=== PATIENT | male | born 1940 | race Caucasian/White ===

== ENCOUNTER → 2018-10-05 | Outpatient (CLI) | payer OTHER ==
[~2018-10-05] MED LIST: AMLO5 PO; ASPI325 PO; ASPI81CH PO; ATOR40TA PO; Aldactone25 MG PO; CLOP75 PO; ENAL10 PO; ENAL20; HYDCHL25 PO; HYDCHL50; LISI5 PO; MAGOXI400 PO; METO50 PO; METO50ER; METO50ER PO; METPRE4DP; MIRT15; MIRT15 PO; OMEP20ER PO; OXYM.05NI; PANT20 PO; POTCHL20ER PO; ROPI1 PO; SERT50; THIA100 PO; TRAZ100
== END | disposition home or self-care (01) ==
LOC: PLD 07:58 → LAB SHORT 07:58
DX: D22.4 Melanocytic nevi of scalp and neck (principal); L81.4 Other melanin hyperpigmentation
CPT/HCPCS: 88305

== ENCOUNTER → 2019-04-12 | Outpatient (CLI) | payer OTHER | END | disposition home or self-care (01) | LOC: PLD 08:20 → LAB SHORT 08:20 | DX: J34.0 Abscess, furuncle and carbuncle of nose (principal) | CPT/HCPCS: 88305 ==

== ENCOUNTER → 2020-04-18 | Outpatient (CLI) | payer OTHER | END | disposition home or self-care (01) | LOC: LAB 08:42 → LAB SHORT 08:42 | DX: D04.4 Carcinoma in situ of skin of scalp and neck (principal) | CPT/HCPCS: 88305 ==

== ENCOUNTER 2021-10-09 14:01 | Day surgery (SDC) | payer OTHER | END 2021-10-09 17:30 | disposition home or self-care (01) | LOC: ORSCSDS 14:01 | PROVIDERS: Internal Medicine Gastroenterology | PROC: 0DB58ZX Excision of Esophagus, Via Natural or Artificial Opening Endoscopic, Diagnostic (ICD-10-PCS; principal; 2021-10-09 15:15) | PROC: 0DBH8ZX Excision of Cecum, Via Natural or Artificial Opening Endoscopic, Diagnostic (ICD-10-PCS; principal; 2021-10-09 15:15) | PROC: 0DBL8ZX Excision of Transverse Colon, Via Natural or Artificial Opening Endoscopic, Diagnostic (ICD-10-PCS; principal; 2021-10-09 15:15) | DX: K22.70 Barrett's esophagus without dysplasia (principal); R19.5 Other fecal abnormalities; Z86.010 Personal history of colon polyps; D12.0 Benign neoplasm of cecum; D12.3 Benign neoplasm of transverse colon; K44.9 Diaphragmatic hernia without obstruction or gangrene; K64.8 Other hemorrhoids; Z87.891 Personal history of nicotine dependence; K57.30 Diverticulosis of large intestine without perforation or abscess without bleeding; E66.9 Obesity, unspecified; Z68.37 Body mass index [BMI] 37.0-37.9, adult; Z79.899 Other long term (current) drug therapy; Z79.82 Long term (current) use of aspirin; I25.2 Old myocardial infarction; G47.33 Obstructive sleep apnea (adult) (pediatric) | CPT/HCPCS: 88305; J0330; J0461; J2370; J2405; J2704; J7120 ==

== ENCOUNTER 2023-01-22 19:00 | Inpatient (IN) | payer OTHER ==
[~2023-01-22] VITALS: Ht 180.3 cm; Wt 128.5 kg
[2023-01-22 19:53] LABS: BASOPHILS ABSOLUTE AUTO 0.07 K/mm3 (0.00-0.23); BASOPHILS PERCENT AUTO 0 % (0-2); EOSINOPHILS ABSOLUTE AUTO 0.03 K/mm3 (0.00-0.68); EOSINOPHILS PERCENT AUTO 0 % (0-6); Hemoglobin 15.3 g/dL (13.5-17.5); IMMATURE GRAN ABSOLUTE AUTO 0.11 K/mm3 (0.00-0.10); IMMATURE GRAN PERCENT AUTO 1 % (0-1); LYMPHOCYTES ABSOLUTE AUTO 1.39 K/mm3 (0.84-5.20); LYMPHOCYTES PERCENT AUTO 8 % (21-46); MONOCYTES ABSOLUTE AUTO 1.05 K/mm3 (0.16-1.47); MONOCYTES PERCENT AUTO 6 % (4-13); Mean Corpuscular HGB 30.6 pg (26.0-34.0); Mean Corpuscular Volume 90 fL (80-100); Mean Platelet Volume 9.6 fL (9.1-12.4); NEUTROPHILS ABSOLUTE AUTO 14.09 K/mm3 (1.96-9.15); NEUTROPHILS PERCENT AUTO 84 % (41-73); Platelet Count 347 K/mm3 (150-400); RDW Coefficient Variation 13.9 % (11.7-14.2); RDW Standard Deviation 45.6 fL (35.1-46.3); White Blood Cell Count 16.74 K/mm3 (4.00-11.30)
[2023-01-22 19:54] LABS: Alanine Aminotransfer (ALT/SGP 15 U/L (12-78); Albumin, Blood 3.5 g/dL (3.4-5.0); Albumin/Globulin Ratio 0.9 (0.8-1.8); Alk Phos 64 U/L (50-136); Anion Gap 11 mmol/L (6-16); Aspartate Aminotrans (AST/SGOT 21 U/L (12-37); Bilirubin, Total 1.3 mg/dL (0.1-1.0); Blood Urea Nitrogen 20 mg/dL (8-24); Bun/Creatinine Ratio 16.5 (12.0-20.0); CO2, Blood 27 mmol/L (21-32); Calcium, Blood 6.6 mg/dL (8.5-10.1); Chloride, Blood 103 mmol/L (98-108); Creatinine, Blood 1.21 mg/dL (0.60-1.20); Globulin, Blood 4.1 g/dL (2.2-4.0); Glomerular Filtration Rate 60 (60-); Glucose, Blood 134 mg/dL (70-99); Potassium, Blood 2.8 mmol/L (3.5-5.5); Sodium, Blood 141 mmol/L (136-145); Total Protein, Blood 7.6 g/dL (6.4-8.2)
[2023-01-22 21:07] LABS: Ethanol (Alcohol), Blood, Med <3 mg/dL
[2023-01-22 21:16] LABS: International Normalized Ratio 1.13; Prothrombin Time Results 11.8 Sec (9.7-11.5)
[2023-01-22 21:18] LABS: Phosphorus, Blood 2.3 mg/dL (2.5-4.9)
[2023-01-22 21:19] LABS: Magnesium, Blood 0.5 mg/dL (1.6-2.4)
[2023-01-22 22:02] LABS: Influenza A, PCR NEGATIVE (NEGATIVE); Influenza B, PCR NEGATIVE (NEGATIVE); Resp Syncytial Virus, PCR NEGATIVE (NEGATIVE); SARS-Cov-2 (COVID-19) PCR, MMC NEGATIVE (NEGATIVE)
[2023-01-22 23:07] LABS: Source, Urine Clean Catch
[2023-01-22 23:39] LABS: Bilirubin, Urine Neg (Neg); Blood, Urine 2+ (Neg); Glucose Qualitative, Urine Neg (Neg); Ketones, Urine 3+ (Neg); Leukocyte Esterase, Urine Neg (Neg); Nitrite, Urine Neg (Neg); Protein, Urine 3+ (Neg); Urobilinogen, Urine NORM (Normal)
[2023-01-22 23:45] LABS: Appearance, Urine Hazy (Clear); Color, Urine Yellow (P-Yellow)
[2023-01-22 23:46] LABS: Bacteria Few /hpf; Red Blood Cells, Urine 0-2 /hpf (0-2); Squamous Epithelial Cells Few /hpf (Few); White Blood Cells, Urine 0-2 /hpf (0-5)
[2023-01-22 23:47] LABS: Base Excess Venous 1.8 mmol/L; Bicarbonate Venous 26.5 mmol/L (24.0-30.0); PCO2 Venous 32.9 mmHg (38-42); pH Blood Venous 7.49 (7.34-7.37)
[2023-01-23] VITALS (10 sets, daily range): BP systolic 143–179; BP diastolic 89–112
[2023-01-23 04:39] LABS: BASOPHILS ABSOLUTE AUTO 0.04 K/mm3 (0.00-0.23); BASOPHILS PERCENT AUTO 0 % (0-2); EOSINOPHILS ABSOLUTE AUTO 0.06 K/mm3 (0.00-0.68); EOSINOPHILS PERCENT AUTO 1 % (0-6); Hematocrit 42.2 % (37.0-53.0); Hemoglobin 14.3 g/dL (13.5-17.5); IMMATURE GRAN ABSOLUTE AUTO 0.09 K/mm3 (0.00-0.10); IMMATURE GRAN PERCENT AUTO 1 % (0-1); LYMPHOCYTES ABSOLUTE AUTO 1.54 K/mm3 (0.84-5.20); LYMPHOCYTES PERCENT AUTO 13 % (21-46); MONOCYTES ABSOLUTE AUTO 0.88 K/mm3 (0.16-1.47); MONOCYTES PERCENT AUTO 7 % (4-13); Mean Corpuscular HGB 30.6 pg (26.0-34.0); Mean Corpuscular HGB Conc 33.9 g/dL (31.5-36.5); Mean Corpuscular Volume 90 fL (80-100); Mean Platelet Volume 9.2 fL (9.1-12.4); NEUTROPHILS ABSOLUTE AUTO 9.32 K/mm3 (1.96-9.15); NEUTROPHILS PERCENT AUTO 78 % (41-73); Platelet Count 286 K/mm3 (150-400); RDW Standard Deviation 46.3 fL (35.1-46.3); Red Blood Cell Count 4.68 M/mm3 (4.30-5.90); White Blood Cell Count 11.93 K/mm3 (4.00-11.30)
[2023-01-23 05:35] LABS: Magnesium, Blood 1.8 mg/dL (1.6-2.4)
[2023-01-23 05:36] LABS: Albumin, Blood 3.1 g/dL (3.4-5.0); Albumin/Globulin Ratio 0.8 (0.8-1.8); Bilirubin, Total 1.4 mg/dL (0.1-1.0); Creatinine, Blood 1.06 mg/dL (0.60-1.20); Globulin, Blood 3.9 g/dL (2.2-4.0); Potassium, Blood 3.1 mmol/L (3.5-5.5)
--- NOTE | 2023-01-23 06:19 | NUR ---
SHIFT SUMMARY PATIENT ARRIVED TO PCU 10 VIA STRETCHER AT 0005, SLIDE TRANSFER COMPLETED. PATIENT IS ALERT AND ORIENTED X3, THOUGHT THE YEAR WAS 1998. EQUAL STRENGTH AND PUPIL REACTION, NO SEIZURE ACTIVITY NOTED. PATIENT'S TONGUE IS SWOLLEN AND BLEEDING DUE TO BEING BITTEN, AVULSION TO PARTIAL LEFT SIDE OF TONGUE, PICTURES IN THE PATIENT'S CHART. FREQUENT SUCTIONING PERFORMED TO MANAGE SECRETIONS PATIENT IS DROWSY/SLEEPING AND NOT MANAGING THEM ON HIS OWN. PATIENT IS ON ROOM AIR, BUT NOTED TO HAVE SLEEP APNEA. BLOOD PRESSURE 140'S-150'S, SINUS RHYTHM IN THE 80'S ON TELE. WILL CONTINUE TO MONITOR. CALL LIGHT WITHIN REACH.
--- NOTE | 2023-01-23 09:16 | NUR ---
WILL HOLD OFF ON PO MEDICATIONS UNTIL SPEECH THERAPY EVAL, PT IS NOT FULLY MANAGING HIS SECRETIONS HE IS NOTED TO BE DROOLING RATHER THAN SWALLOWING, HE IS NOT AWARE OF THIS. FAMILY AT BEDSIDE MENTIONS NUMEROUS TIMES THAT PT IS THIRSTY, THE FAMILY IS EDUCATED ABOUT NPO STATUS AND IS MADE AWARE OF PT DROOLING OPPOSED TO SWALLOWING, FAMILY AGAIN ASKS "YOU'RE SUPPOSED TO SWALLOW?" THEY ARE EDUCATED THOROUGHLY BUT EDUCATION DOES NOT APPEAR SUCCESSFUL. SPEECH THERAPY WILL BE COMING IN TO EVALUATE HIM SHORTLY.
--- NOTE | 2023-01-23 12:13 | NUR ---
PT CONTINUES TO BE STRICT NPO, HE DECLINED ORAL CARE FOR PCT THIS RN OFFERED AND PT AGREED LONG HE WAS ALLOWED TO DO IT FOR HIMSELF. HE WAS ABLE TO CLEAN THE TONGUE WOUND WELL, AND SPIT IN CUP, SUCTION SWABS USED.
[2023-01-23] MEDS ORDERED: METO25ER PO (12:49)
[2023-01-23] MEDS ORDERED: METO100ER PO (12:49)
[2023-01-23] MEDS ORDERED: DOXE25 PO (12:49)
[2023-01-23] MEDS ORDERED: PANT40 PO (12:50)
[2023-01-23] MEDS ORDERED: SPIR25 PO (12:50)
[2023-01-23] MEDS ORDERED: MIRT15 PO (12:50)
[2023-01-23] MEDS ORDERED: Lopressor 25 mg25 MG PO (12:53)
--- NOTE | 2023-01-23 15:07 | NUR ---
pt to MRI
--- NOTE | 2023-01-23 18:23 | NUR ---
PT A/O X2, ORIENTED TO PLACE AND SELF ONLY T/O THIS ENTIRE SHIFT. HE IS IMPULSIVE HE HAS REMOVED TWO IVs TODAY HE WAS CONFUSED, HE HAS BEEN IMPLUSIVE AND HAS ATTEMPTED TO EXIT THE BED THIS AM. HE DOES NOT USE CALL LIGHT APPROPRIATE. HE IS ABLE TO USE THE URINAL WITH ASSISTANCE. ORAL CARE HAS BEEN PERFORMED Q4 HOURS. HE REMAINS NPO, HE IS A TRICT NPO HE IS NOT ABLE TO SWALLOW OWN SECRETIONS. HE HAS BEEN FOR MRI TODAY WHICH SHOWED A SMALL TEMPORAL LOBE INFARCT. A CAROTID STUDY WAS PERFORMED THIS EVENING. HE HAS AN ECHO ORDERED WHICH HAS NOT BEEN PERFORMED. HE HAS HTN NOTED ON THE MONITOR, AWARE.
[2023-01-24 04:19] VITALS: BP 130/95
[2023-01-24 05:08] LABS: BASOPHILS ABSOLUTE AUTO 0.08 K/mm3 (0.00-0.23); BASOPHILS PERCENT AUTO 1 % (0-2); EOSINOPHILS ABSOLUTE AUTO 0.11 K/mm3 (0.00-0.68); EOSINOPHILS PERCENT AUTO 1 % (0-6); Hematocrit 44.4 % (37.0-53.0); Hemoglobin 14.7 g/dL (13.5-17.5); IMMATURE GRAN ABSOLUTE AUTO 0.09 K/mm3 (0.00-0.10); IMMATURE GRAN PERCENT AUTO 1 % (0-1); LYMPHOCYTES ABSOLUTE AUTO 1.58 K/mm3 (0.84-5.20); LYMPHOCYTES PERCENT AUTO 11 % (21-46); MONOCYTES ABSOLUTE AUTO 1.12 K/mm3 (0.16-1.47); MONOCYTES PERCENT AUTO 8 % (4-13); Mean Corpuscular HGB 30.7 pg (26.0-34.0); Mean Corpuscular HGB Conc 33.1 g/dL (31.5-36.5); Mean Corpuscular Volume 93 fL (80-100); Mean Platelet Volume 9.5 fL (9.1-12.4); NEUTROPHILS ABSOLUTE AUTO 11.35 K/mm3 (1.96-9.15); NEUTROPHILS PERCENT AUTO 79 % (41-73); Platelet Count 334 K/mm3 (150-400); RDW Coefficient Variation 14.1 % (11.7-14.2); RDW Standard Deviation 48.3 fL (35.1-46.3); Red Blood Cell Count 4.79 M/mm3 (4.30-5.90); White Blood Cell Count 14.33 K/mm3 (4.00-11.30)
[2023-01-24 05:31] LABS: Anion Gap 11 mmol/L (6-16); Blood Urea Nitrogen 16 mg/dL (8-24); Bun/Creatinine Ratio 14.5 (12.0-20.0); CHOL/HDL RATIO 2.7; CO2, Blood 25 mmol/L (21-32); Calcium, Blood 7.1 mg/dL (8.5-10.1); Chloride, Blood 104 mmol/L (98-108); Cholesterol 118 mg/dL (50-200); Glomerular Filtration Rate 67 (60-); Glucose, Blood 111 mg/dL (70-99); HDL Cholesterol 43 mg/dL (>39); LDL/HDL RATIO 1.2; Low Density Lipoprotein Chol 53 mg/dL (0-110); Magnesium, Blood 1.5 mg/dL (1.6-2.4); Potassium, Blood 3.3 mmol/L (3.5-5.5); Sodium, Blood 140 mmol/L (136-145); Triglycerides 110 mg/dL (30-160); Very Low Density Lipoprot Chol 22 mg/dL (6-32)
--- NOTE | 2023-01-24 06:57 | NUR ---
SHIFT SUMMARY PATIENT ALERT AND ORIENTED X2. DOES NOT REALISE THAT HE IS IN THE HOSPITAL. PATIENT IS IMPULSIVE TRYING TO GET UP AND PULLING AT LINES AND TELEMETRY AND IS DIFFICULT TO REDIRECT. PATIENT HAS BECOME FRUSTRATED MANY TIMES WANTING TO GO HOME AND HAS OCCASIONALLY RAISED HIS FIST IN IN THREATENING MANOR AND THREATENED TO HIS THIS NURSE ON A COUPLE OCCASIONS. MEDICATED PER EMAR FOR HYPERTENTION, SINUS RHYTHM ON TELE. ON ROOM AIR WITH SPO2 >90%. PATIENT STILL HAVING DIFFICULTY MANAGING HIS SECRETIONS AND DROOLING, BUT STARTING TO SWALLOW THEM ON OCCASION. WILL CONTINUE TO MONITOR. CALL LIGHT WITHIN REACH.
[2023-01-24 07:51] VITALS: BP 153/96
--- NOTE | 2023-01-24 09:54 | NUR ---
THIS RN IN ROOM TO PERFORM ORAL CARE, PT GRABS THE SUCTION SWAB FROM THIS RN BREAKS IT IN HALF, SLINGS ORAL CARE SOLUTION IN THIS RN'S EYES, THEN ATTEMPTS TO HIT THIS RN IN THE FACE. ATTEMPTS TO PERFORM ORAL ARE MILDLY SUCCESSFUL PT IS ATTMEPTING TO CLEAN HIS OWN MOUTH BUT HE IS NOT CLEANING THE MOUTH WOUND, PT IS TOO VIOLENT TO ON NUMROUS OCCASIONS TO CONTINUE THIS ATTEMPT AT ORAL CARE
[2023-01-24 17:13] VITALS: BP 160/98
--- NOTE | 2023-01-24 18:03 | NUR ---
PT HAS CONTINUED TO BE AGITATED T/O THE DAY, HE REMAINS COMBATIVE AND STRIKES AT STAFF WHEN TOUCHED OR ORAL CARE IS PERFORMED. AVASURE CAMERA REMAINS IN USE IN ROOM. VSS. HE IS MORE CONFUSED TODAY THAN YESTERDAY. HE IS MAINTAINING HIS AIRWAY WELL, WITH CONGESTED SOUNDING COUGH, HE PUNCHES STAFF WHILE ATTEMPTING TO SUCTION HIS CONGESTED COUGH. HE REMAINS RESTLESS AND REMOVING MONITORING EQUIPMENT, HE HAS ATTEMPTED TO REMOVE POWERGLIDE TODAY HE WAS NOT SUCCESSFUL IN REMOVING POWER GLIDE THE LINES DRAWS AND FLUSHES. HE IS ABLE TO MANAGE HIS SECRETIONS TODAY AND IS ABLE TO SWALLOW, HE WAS RE-EVALUATED BY SPEECH THERAPY TODAY HE REMAINS NPO. SUCTION SWABS USED WHEN HE IS NOT PUNCHING STAFF FOR PEFORMING ORAL CARE
[2023-01-24 19:22] VITALS: BP 162/100
[2023-01-25] VITALS (11 sets, daily range): BP systolic 153–186; BP diastolic 61–105
[2023-01-25 03:57] LABS: BASOPHILS ABSOLUTE AUTO 0.04 K/mm3 (0.00-0.23); BASOPHILS PERCENT AUTO 0 % (0-2); EOSINOPHILS ABSOLUTE AUTO 0.19 K/mm3 (0.00-0.68); EOSINOPHILS PERCENT AUTO 2 % (0-6); Hematocrit 39.4 % (37.0-53.0); Hemoglobin 12.8 g/dL (13.5-17.5); IMMATURE GRAN ABSOLUTE AUTO 0.05 K/mm3 (0.00-0.10); IMMATURE GRAN PERCENT AUTO 1 % (0-1); LYMPHOCYTES ABSOLUTE AUTO 1.14 K/mm3 (0.84-5.20); LYMPHOCYTES PERCENT AUTO 13 % (21-46); MONOCYTES PERCENT AUTO 11 % (4-13); Mean Corpuscular HGB 30.5 pg (26.0-34.0); Mean Corpuscular HGB Conc 32.5 g/dL (31.5-36.5); Mean Corpuscular Volume 94 fL (80-100); Mean Platelet Volume 9.4 fL (9.1-12.4); NEUTROPHILS ABSOLUTE AUTO 6.66 K/mm3 (1.96-9.15); NEUTROPHILS PERCENT AUTO 73 % (41-73); Platelet Count 282 K/mm3 (150-400); RDW Standard Deviation 47.9 fL (35.1-46.3); White Blood Cell Count 9.08 K/mm3 (4.00-11.30)
[2023-01-25 04:12] LABS: Albumin, Blood 2.9 g/dL (3.4-5.0); Anion Gap 9 mmol/L (6-16); Blood Urea Nitrogen 13 mg/dL (8-24); Bun/Creatinine Ratio 12.1 (12.0-20.0); CO2, Blood 28 mmol/L (21-32); Calcium, Blood 6.5 mg/dL (8.5-10.1); Chloride, Blood 105 mmol/L (98-108); Creatinine, Blood 1.07 mg/dL (0.60-1.20); Glomerular Filtration Rate 70 (60-); Glucose, Blood 103 mg/dL (70-99); Magnesium, Blood 1.4 mg/dL (1.6-2.4); Phosphorus, Blood 1.8 mg/dL (2.5-4.9); Potassium, Blood 3.3 mmol/L (3.5-5.5); Sodium, Blood 142 mmol/L (136-145)
--- NOTE | 2023-01-25 05:05 | NUR ---
END OF SHIFT NOTE: PT ALERT, ORIENTED X1-2. AGITATED AT TIMES, IV BENADRYL SOMEWHAT EFFECTIVE AT REDUCING THE AGITATION. PT HAS BEEN HALLUCINATING AT TIMES, GRASPING TOWARDS THINGS IN THE AIR THAT ARE NOT PRESENT AND STATING "COME HERE YOU" AND TRYING TO REMOVE "STRINGS" FROM HIS GLASSES THAT ARE NOT PRESENT. PT WAS COMBATIVE AT TIMES WHEN AWOKEN OR STARTLED, OR WHEN HE DID NOT WANT CARE PERFORMED (EX. ORAL CARE). [employer] CAMERA REMAINS IN PLACE FOR PT SAFETY. CONGESTED COUGH AND HEAVY SNORE REMAIN, BUT PT APPEARS TO BE HANDLING HIS OWN SECRETIONS. NO DROOLING OBSERVED. SUCTION PRN WHEN PT WILL ALLOW. Q2 ORAL CARE ATTEMPTED, ONLY SUCCESSFUL AT TIMES. VSS, BP REMAINS ELEVATED. SPO2 >90% ON RA. MULTIPLE INCONTINENT VOIDS, ATTENDS CHANGED TO KEEP C/D/I. REPOSITIONED AND BOOSTED IN BED WHEN PT AGREEABLE AND COOPERATIVE. NO OTHER EVENTS. CALL LIGHT WITHIN REACH, BED IN LOWEST POSITION. BED ALARM ON. WILL REPORT TO ONCOMING RN.
--- NOTE | 2023-01-25 18:19 | NUR ---
Shift Summary Pt alert, oriented to self, hallucinating grabbing at air and talking while eyes closed, this am. Pt up to chair and slept for several hours, this afternoon, pt more alert and oriented x3. Up with 2 person assist. Pt denies pain, chest pain/pressure, sob, nausea, and dizziness. Pt tele sinus 90's, bp elevated. Spo2 >90% on ra, apnea noted while sleeping. Pt is not able to manage secretions, noted drooling, suction used several times during shift, started peridex bid. Abd distended, normal for patient, nontender with +bt. Other vss. No other acute changes noted. Will continue to monitor.
--- NOTE | 2023-01-25 20:53 | NUR ---
ASSUMPTION OF CARE AFTER RECEIVING REPORT FROM TRICIA MARTINEZ, THIS RN ASSUMED CARE AT APPROX 1915. PATIENT SLEEPING DURING INITIAL ENCOUNTER, EASILY AROUSABLE TO VERBAL STIMULI. IS ALERT AND ORIENTED X2-3. ABLE TO REPORT NAME, DATE OF , AND THAT HE IS IN THE HOSPITAL. SPEECH IS SOFT, GARBLED. ABLE TO COMMUNICATE NEEDS EFFECTIVELY. IS FORGETFUL, BED ALARM AND BEDSIDE AVASURE IN PLACE. IS COOPERATIVE WITH CARE. TELEMETRY SHOWING SINUS 80's. BP ELEVATED, SBP 160's-170's. DENIES CHEST PAIN OR PRESSURE. THIS RN ADMINISTERED IV HYDRALAZINE PER EMAR. WILL CONTINUE TO MONITOR. ON ROOM AIR, SATS >90%. WEAK COUGH NOTED WITH MODERATE SECRETIONS. REQUIRING FREQUENT SUCTION PRN AND TOLERATED. CONTINENT, USES URINAL WITH ASSIST. CALL LIGHT IN REACH.
[2023-01-26 03:48] VITALS: BP 165/85
[2023-01-26 04:09] VITALS: BP 137/88
--- NOTE | 2023-01-26 05:12 | NUR ---
SHIFT SUMMARY NO ACUTE CHANGES SINCE PREVIOUS ASSUMPTION OF CARE NOTE. PATIENT SLEPT THROUGHOUT SHIFT, EASILY AROUSABLE TO VERBAL STIMULI. TELEMETRY CONTINUING TO SHOW SINUS 80's. BP ELEVATED AT TIMES THROUGHOUT NIGHT, SBP 150's-160's. MOST CURRENT SBP 130's. REMAINS ON ROOM AIR, SATS >92%. ORAL SUCTIONING FOR MODERATE SECRETIONS PERFORMED NEEDED/TOLERATED. PATIENT DECLINED MULTIPLE TIMES THROUGHOUT NIGHT. 2P ASSIST FOR MOBILITY. UP TO USE BSC FOR X1 BM. USES URINAL IN BED WITH ASSIST, VOIDING. IVF INFUSING PER EMAR. BED ALARM AND AVASURE IN PLACE. CALL LIGHT IN REACH. WILL REPORT TO ONCOMING RN.
[2023-01-26 07:13] VITALS: BP 169/102
--- NOTE | 2023-01-26 07:36 | NUR ---
AM NOTE PT ALERT, ORIENTED X2; CALM AND COOPERATIVE WTIH CARE. FORGETFUL AT TIMES. BED ALARM ON. 2 PERSON ASSIST UP TO CHAIR. PT DENIES PAIN, CHEST PAIN/PRESSURE, SOB, NAUSEA, DIZZINESS AND NUMB/TINGLING. SPO2 >90% ON RA, MODERATE AMOUNT OF SPUTUM NOTED, PT SELF SUCTIONED. PERIDEX ORAL CARE COMPLETED. NO DROOLING NOTED THIS AM. TELE SINUS, ELEVATED BP, MEDICATED PER EMAR. ABD DISTENDER, NORMAL FOR PT, NONTENDER, +BT T/O. VSS. NO OTHER ACUTE CHANGES NOTED. WILL CONTINUE TO MONITOR. PLANS TO FOLLOW UP WITH PT/OT/ST TODAY.
[2023-01-26 10:01] LABS: Bun/Creatinine Ratio 11.1 (12.0-20.0); Creatinine, Blood 0.9 mg/dL (0.60-1.20); Potassium, Blood 3.2 mmol/L (3.5-5.5)
[2023-01-26 15:17] VITALS: BP 148/94
--- NOTE | 2023-01-26 17:39 | NUR ---
Shift Summary Dr Winter consulted on tongue laceration. Perideix this am, 2 salt rinses, and oral care q2. No acute changes noted. Vss. will continue to monitor.
[2023-01-26 20:54] VITALS: BP 180/79
[2023-01-26 21:59] VITALS: BP 168/91
[2023-01-27 03:29] VITALS: BP 157/99
[2023-01-27 04:23] LABS: BASOPHILS ABSOLUTE AUTO 0.05 K/mm3 (0.00-0.23); BASOPHILS PERCENT AUTO 1 % (0-2); EOSINOPHILS PERCENT AUTO 2 % (0-6); Hematocrit 40.2 % (37.0-53.0); Hemoglobin 13.6 g/dL (13.5-17.5); IMMATURE GRAN ABSOLUTE AUTO 0.04 K/mm3 (0.00-0.10); IMMATURE GRAN PERCENT AUTO 0 % (0-1); LYMPHOCYTES ABSOLUTE AUTO 1.05 K/mm3 (0.84-5.20); LYMPHOCYTES PERCENT AUTO 10 % (21-46); MONOCYTES PERCENT AUTO 10 % (4-13); Mean Corpuscular HGB 30.8 pg (26.0-34.0); Mean Corpuscular HGB Conc 33.8 g/dL (31.5-36.5); Mean Corpuscular Volume 91 fL (80-100); Mean Platelet Volume 9.6 fL (9.1-12.4); NEUTROPHILS ABSOLUTE AUTO 8.13 K/mm3 (1.96-9.15); NEUTROPHILS PERCENT AUTO 78 % (41-73); Platelet Count 326 K/mm3 (150-400); RDW Coefficient Variation 13.9 % (11.7-14.2); RDW Standard Deviation 46.6 fL (35.1-46.3); Red Blood Cell Count 4.42 M/mm3 (4.30-5.90); White Blood Cell Count 10.47 K/mm3 (4.00-11.30)
[2023-01-27 05:00] LABS: Bun/Creatinine Ratio 13.1 (12.0-20.0); Creatinine, Blood 0.91 mg/dL (0.60-1.20); Magnesium, Blood 1.6 mg/dL (1.6-2.4); Potassium, Blood 3.4 mmol/L (3.5-5.5)
--- NOTE | 2023-01-27 06:31 | NUR ---
SHIFT SUMMARY PATIENT ALERT AND ORIENTED X 2-3. CONTINUES TO BE CONFUSED AND FORGETFUL, THOUGHT HE WAS TALKING TO HIS IN HIS ROOM THIS MORNING WHEN SHE WASN'T PRESENT. HAD NO COMPLAINTS OF PAIN OR SHORTNESS OF BREATH. DR. VICENTE CAME TO BEDSIDE AND ASSESSED THE PATIENT'S TONGUE. PATIENT COMPLETING HIS OWN ORAL CARE WHEN PROMPTED, FOLLOWING DIRECTIONS WELL. ON ROOM AIR WITH SPO2 >90%, MANAGING HIS SECRETIONS BETTER. MEDICATED PER EMAR FOR BLOOD PRESSURE, SINUS RHYTHM ON TELE. WILL CONTINUE TO MONITOR. CALL LIGHT WITHIN REACH.
[2023-01-27 07:17] VITALS: BP 155/99
--- NOTE | 2023-01-27 07:34 | NUR ---
AM NOTE Pt appears to be sleeping, wakes easily to verbal stimuli, oriented to self, date and place. Pt up with 2 person assist to recliner. Pt deneis pain, chest pain/pressure, dizziness and numb/tinling. Pt reports "a little bit" of nausea this am. Pt Spo2 >90% on ra, ls coarse upper lobes, dim bases. Decreased in need for suction. Tele sinus 90's, bp elevated but stable. Abd distended, normal for patient, firm, nontender, +bt t/o. Oral care completed this am. Other vss. No other acute changes noted. wywy camera turned off at approx 0730; bed alarm in place.
[2023-01-27 15:31] VITALS: BP 165/92
--- NOTE | 2023-01-27 19:18 | NUR ---
Shift Summary Oral completed t/o shift. Feed patient a few bites of dinner, appears to tolerate swallowing well, no coughing or obvious signs of aspiration noted, oral care completed after. Pt recieved magnesium and potassium during shift. Other vss. No other acute chagnes noted. Report given to oncoming rn.
[2023-01-27 20:34] VITALS: BP 180/111
[2023-01-27 23:59] VITALS: BP 156/104
[2023-01-28 04:02] LABS: BASOPHILS ABSOLUTE AUTO 0.04 K/mm3 (0.00-0.23); BASOPHILS PERCENT AUTO 0 % (0-2); EOSINOPHILS ABSOLUTE AUTO 0.29 K/mm3 (0.00-0.68); EOSINOPHILS PERCENT AUTO 3 % (0-6); Hematocrit 39.1 % (37.0-53.0); Hemoglobin 13.1 g/dL (13.5-17.5); IMMATURE GRAN ABSOLUTE AUTO 0.06 K/mm3 (0.00-0.10); IMMATURE GRAN PERCENT AUTO 1 % (0-1); LYMPHOCYTES ABSOLUTE AUTO 1.32 K/mm3 (0.84-5.20); LYMPHOCYTES PERCENT AUTO 13 % (21-46); MONOCYTES ABSOLUTE AUTO 1.12 K/mm3 (0.16-1.47); MONOCYTES PERCENT AUTO 11 % (4-13); Mean Corpuscular HGB 30.7 pg (26.0-34.0); Mean Corpuscular HGB Conc 33.5 g/dL (31.5-36.5); Mean Corpuscular Volume 92 fL (80-100); Mean Platelet Volume 9.8 fL (9.1-12.4); NEUTROPHILS ABSOLUTE AUTO 7.67 K/mm3 (1.96-9.15); NEUTROPHILS PERCENT AUTO 73 % (41-73); Platelet Count 324 K/mm3 (150-400); RDW Coefficient Variation 13.6 % (11.7-14.2); RDW Standard Deviation 46.3 fL (35.1-46.3); Red Blood Cell Count 4.27 M/mm3 (4.30-5.90)
[2023-01-28 04:07] VITALS: BP 179/94
[2023-01-28 04:24] LABS: Bun/Creatinine Ratio 16.8 (12.0-20.0); Calcium, Blood 7.2 mg/dL (8.5-10.1); Creatinine, Blood 0.83 mg/dL (0.60-1.20); Magnesium, Blood 1.6 mg/dL (1.6-2.4); Potassium, Blood 3.1 mmol/L (3.5-5.5)
[2023-01-28 04:58] VITALS: BP 169/95
--- NOTE | 2023-01-28 06:30 | NUR ---
SHIFT SUMMARY PATIENT ALERT AND ORIENTED X 2-3. MUMBLES AND SLURS HIS WORDS, PATIENT CONTINUES TO BE CONFUSED AND FORGETFUL BUT IS REDIRECTABLE AND COOPORATIVE WITH CARE. HAD NO COMPMLAINTS OF PAIN OR SHORTNESS OF BREATH. HAS BEEN ON ROOM AIR WITH SPO2 >90%. MEDICATED PER EMAR FOR HYPERTENTION, SINUS RHYTHM ON TELE. WILL CONTINUE TO MONITOR. CALL LIGHT WITHIN REACH.
[2023-01-28 08:17] VITALS: BP 163/106
--- NOTE | 2023-01-28 15:49 | NUR ---
Spiritual care visit conducted. Patient is sitting on a chair and alert. His spouse, Renata is bedside. 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 They discuss their membership at the [employer], the of their daughter and their family. Patient is honest about the emotional toll his medical challenges have taken on him. I normalize his experince, reinforce helpful attitudes and practices and provide therapeutic listening, and a calming presence. I will continue to remain available to patient and family
[2023-01-28 17:27] VITALS: BP 152/97
--- NOTE | 2023-01-28 18:04 | NUR ---
SHIFT SUMMARY PATIENT CONTINUES TO BE FORGETFUL AND A LITTLE CONFUSED. PATIENT ABLE TO MAKE NEEDS KNOWN. PATIENT UP TO CHAIR X2. USING WALKER AND GAIT BELT. PATIENT NEEDING TO BE FREQUENT REMINDERS WITH SAFE AMBULATION. FREQUENT ORAL CARE DONE. PATIENT ABLE TO PARTICIPATE WITH ORAL CARE AND USE SUCTION. PATIENT TOLERATING SMALL AMOUNTS OF FULL LIQUID DIET. PATIENT HAS POOR APPETITE. PATIENT UP TO COMMODE FOR MEDIUM LOOSE STOOL. PATIENT HAVING EPISODES OF INCONTINENCE BUT DOES ATTEMPT TO USE URINAL. ATTENDS IN PLACE. FAMILY IN TO SEE PATIENT AND VERBALIZING CONCERNS RELATED TO DISCHARGE. FAMILY HOPEFUL PATIENT WILL BE ABLE TO GO TO REHAB BEFORE DISCHARGING HOME. PATIENT WORKED WITH BOTH PT AND OT TODAY ALONG WITH SPEECH. DENTAL HYGENTIST ASSESSED AND HELPED WITH ORAL CARE.
[2023-01-28 21:25] VITALS: BP 143/86
[2023-01-28 23:25] VITALS: BP 148/91
[2023-01-29 04:18] LABS: BASOPHILS ABSOLUTE AUTO 0.07 K/mm3 (0.00-0.23); BASOPHILS PERCENT AUTO 1 % (0-2); EOSINOPHILS ABSOLUTE AUTO 0.29 K/mm3 (0.00-0.68); EOSINOPHILS PERCENT AUTO 3 % (0-6); Hematocrit 39.3 % (37.0-53.0); Hemoglobin 13.2 g/dL (13.5-17.5); IMMATURE GRAN ABSOLUTE AUTO 0.07 K/mm3 (0.00-0.10); IMMATURE GRAN PERCENT AUTO 1 % (0-1); LYMPHOCYTES ABSOLUTE AUTO 1.37 K/mm3 (0.84-5.20); LYMPHOCYTES PERCENT AUTO 12 % (21-46); MONOCYTES ABSOLUTE AUTO 1.15 K/mm3 (0.16-1.47); MONOCYTES PERCENT AUTO 10 % (4-13); Mean Corpuscular HGB 30.8 pg (26.0-34.0); Mean Corpuscular HGB Conc 33.6 g/dL (31.5-36.5); Mean Corpuscular Volume 92 fL (80-100); Mean Platelet Volume 9.7 fL (9.1-12.4); NEUTROPHILS ABSOLUTE AUTO 8.16 K/mm3 (1.96-9.15); NEUTROPHILS PERCENT AUTO 74 % (41-73); Platelet Count 354 K/mm3 (150-400); RDW Coefficient Variation 13.6 % (11.7-14.2); RDW Standard Deviation 46.3 fL (35.1-46.3); Red Blood Cell Count 4.28 M/mm3 (4.30-5.90); White Blood Cell Count 11.11 K/mm3 (4.00-11.30)
[2023-01-29 04:30] VITALS: BP 158/82
[2023-01-29 04:48] LABS: Bun/Creatinine Ratio 21.4 (12.0-20.0); Calcium, Blood 7.8 mg/dL (8.5-10.1); Creatinine, Blood 0.93 mg/dL (0.60-1.20); Magnesium, Blood 1.9 mg/dL (1.6-2.4); Potassium, Blood 3.2 mmol/L (3.5-5.5); Thyroid Stimulating Hormone 1.42 uIU/mL (0.360-4.800)
--- NOTE | 2023-01-29 06:40 | NUR ---
SHIFT SUMMARY PATIENT ALERT AND ORIENTED X2-3. HAS BEEN 2 ASSIST WITH FWW. TOLERATING NECTAR THICK LIQUIDS. HAD NO COMPMLAINTS OF PAIN OR SHORTNESS OF BREATH. ON ROOM AIR OVERNIGHT. VITAL SIGNS STABLE, SINUS RHYTHM ON TELE. NO ACUTE ISSUES NOTED OVERNIGHT. WILL CONTINUE TO MONITOR. CALL LIGHT WITHIN REACH.
[2023-01-29 07:14] VITALS: BP 162/101
[2023-01-29 17:50] VITALS: BP 127/80
--- NOTE | 2023-01-29 17:56 | NUR ---
SHIFT SUMMARY AND TRANSFER TO MEDICAL FLOOR PATIENT CONTINUES TO BE CONFUSED. ORIENTED TO SELF AND LOCATION. PATIENT LETHARGIC AT TIMES, NEEDING STIMULATION TO STAY AWAKE. PATIENT HAS HX OF SLEEP APNEA AND UNABLE TO WEAR A CPAP. PATIENT ABLE TO AMBULATE WITH WALKER, GAIT BELT AND ASSISTANCE. PATIENT CONTINUES TO REQUIRE FREQUENT ORAL CARE. TONGUE CONTINUES TO BE TENDER. NO BLEEDING NOTED. PATIENT ABLE TO FEED SELF WITH SUPERVISION. PATIENT TOLERATING ABOUT 50% OF MEAL. CONCERNED ABOUT TRANSFER TO REHAB. WANTING TO BE SURE THAT ELECTROLYTES WILL BE MONITORED AND ADDRESSED NEEDED. ALSO CONCERNED ABOUT ASPIRATION RISK AT HOME IF PATIENT CONTINUES TO HAVE ISSUES WITH SWALLOWING. PATIENT TO SEE ENT AN OUTPATIENT FOR REPAIR TO THE TONGUE. PATIENT TO TRANSFER TO [facility] FOR REHAB WHEN INSURANCE AUTH RECIEVED. FAMILY AWARE OF UPCOMING TRANSFER.
--- NOTE | 2023-01-29 18:14 | NUR ---
TRANSFER PATIENT TRANSFERED TO [facility] VIA WHEELCHAIR BY FRAME CARVER SPINDLE. BELONGINGS SENT WITH PATIENT. REPORT CALLED TO WILLIAM CASTAÑEDA RN.
[2023-01-29 20:47] VITALS: BP 166/88
[2023-01-30 04:34] VITALS: BP 168/60
[2023-01-30 04:53] VITALS: BP 179/66
[2023-01-30 06:15] LABS: BASOPHILS ABSOLUTE AUTO 0.07 K/mm3 (0.00-0.23); BASOPHILS PERCENT AUTO 1 % (0-2); EOSINOPHILS ABSOLUTE AUTO 0.27 K/mm3 (0.00-0.68); EOSINOPHILS PERCENT AUTO 3 % (0-6); Hematocrit 40.1 % (37.0-53.0); Hemoglobin 13.3 g/dL (13.5-17.5); IMMATURE GRAN ABSOLUTE AUTO 0.09 K/mm3 (0.00-0.10); IMMATURE GRAN PERCENT AUTO 1 % (0-1); LYMPHOCYTES ABSOLUTE AUTO 1.21 K/mm3 (0.84-5.20); LYMPHOCYTES PERCENT AUTO 12 % (21-46); MONOCYTES PERCENT AUTO 11 % (4-13); Mean Corpuscular HGB 30.6 pg (26.0-34.0); Mean Corpuscular HGB Conc 33.2 g/dL (31.5-36.5); Mean Corpuscular Volume 92 fL (80-100); Mean Platelet Volume 9.7 fL (9.1-12.4); NEUTROPHILS ABSOLUTE AUTO 7.72 K/mm3 (1.96-9.15); NEUTROPHILS PERCENT AUTO 74 % (41-73); Platelet Count 353 K/mm3 (150-400); RDW Coefficient Variation 13.4 % (11.7-14.2); Red Blood Cell Count 4.35 M/mm3 (4.30-5.90); White Blood Cell Count 10.46 K/mm3 (4.00-11.30)
[2023-01-30 06:42] LABS: Bun/Creatinine Ratio 25.1 (12.0-20.0); Creatinine, Blood 0.92 mg/dL (0.60-1.20); Potassium, Blood 3.6 mmol/L (3.5-5.5)
--- NOTE | 2023-01-30 07:21 | NUR ---
REPORT RECEIEVD VERIFIED, PT A/O X2 VERY PLEASENT AND COOPERATIVE. ORAL CARE DONE WITH WALL SUCTION WHICH PT DID NOT LIKE BUT I ENC TO DO SO PT DID IT HIMSELF. ALSO PT INC AND I ENC TO USE BSC, PT TRANSFERED WELL. PT HAS HX OF SLEEP APNEA AND WAS PLACED ON CONT PULSE OX TO MONITOR 02. O2 MAINTAINED WHILE SLEEPING. CONT MONITOR
[2023-01-30 07:26] VITALS: BP 111/83
[2023-01-30 11:10] LABS: SARS-Cov-2 (COVID-19) PCR, MMC NEGATIVE (NEGATIVE)
[2023-01-30] MEDS ORDERED: ASPI81CH PO (11:52)
[2023-01-30] MEDS ORDERED: ATOR40TA PO (11:53)
[2023-01-30] MEDS ORDERED: PERIDEX15 ML MM (11:54)
[2023-01-30] MEDS ORDERED: CLOP75 PO (11:55)
[2023-01-30] MEDS ORDERED: LACT PO (11:56)
[2023-01-30] MEDS ORDERED: LOSA25 PO (11:57)
[2023-01-30] MEDS ORDERED: KEPPRA250 M1 PO (11:57)
[2023-01-30] MEDS ORDERED: AFRIN15 M6 (12:02)
[2023-01-30] MEDS ORDERED: POTA20LUD PO (12:03)
--- NOTE | 2023-01-30 14:07 | NUR ---
SHIFT SUMMARY AND DISCHARGE PATIENT DISCHARGED TO [facility] FOR REHAB. PATIENT INTERACTIVE WITH CARE. EASILY DRIFTING OFF TO SLEEP WHEN UNDISTURBED. SNORING WHEN SLEEPING. PATIENT HAS HX OF SLEEP APNEA AND UNABLE TO WEAR A CPAP. PATIENT TOLERATING PUREED DIET WITH THICKENED LIQUIDS. PATIENT UP TO COMMODE TO HAVE A LOOSE STOOL. CONTINUES TO HAVE EPISODES OF INCONTINENCE VS CONTINENCE. PATIENT CONTINUES TO HAVE SORE TONGUE AND WOUNDS ON EACH SIDE OF TONGUE FROM BITING DURING SEIZURE. MOUTH CARE PERFORMED NEEDED. PATIENT ENCOURAGED TO SWALLOW SALIVA PERIODICALLY. PATIENT ABLE TO PARTICIPATE IN ORAL CARE AND SUCTIONING. REPORT CALLED TO [facility]. PATIENT TRANSPORTED VIA WHEELCHAIR TRANSPORT. BELONGINGS SENT WITH PATIENT.
== END 2023-01-30 13:26 | DRG 64 ==
LOC: ER 19:00 → PCU 19:01 → MEDS 01-29 18:14 → ENPENDDIS 01-30 11:49 → MEDS 01-30 13:26
PROVIDERS: Emergency Medicine; Family Medicine; Internal Medicine; Student in an Organized Health Care Education/Training Program; ADMIT Student in an Organized Health Care Education/Training Program
DX: I63.50 Cerebral infarction due to unspecified occlusion or stenosis of unspecified cerebral artery (principal); G92.8 Other toxic encephalopathy; R56.9 Unspecified convulsions; S01.552A Open bite of oral cavity, initial encounter; I25.10 Atherosclerotic heart disease of native coronary artery without angina pectoris; I10 Essential (primary) hypertension; G47.33 Obstructive sleep apnea (adult) (pediatric); R13.10 Dysphagia, unspecified; K21.9 Gastro-esophageal reflux disease without esophagitis; X58.XXXA Exposure to other specified factors, initial encounter; E83.42 Hypomagnesemia; E87.6 Hypokalemia; E83.51 Hypocalcemia; I67.1 Cerebral aneurysm, nonruptured; I65.23 Occlusion and stenosis of bilateral carotid arteries; R45.1 Restlessness and agitation; Z88.6 Allergy status to analgesic agent; Z79.82 Long term (current) use of aspirin; Z95.5 Presence of coronary angioplasty implant and graft; Z87.891 Personal history of nicotine dependence; Z11.52 Encounter for screening for COVID-19
CPT/HCPCS: 0241U; 36415; 70450; 70551; 71045; 74230; 80048; 80053; 80061; 80069; 81001; 82330; 82550; 82803; 83605; 83735; 84100; 84443; 84484; 85025; 85610; 87040; 92526; 92610; 92611; 93005; 93010; 93306; 93880; 96365; 96367; 96375; 96376; 97110; 97162; 97166; 97530; 97535; 99285-25; A9270; G0378; J0360; J0456; J0612; J0696; J1200; J1953; J3411; J3475; J3480; J7050; J7060; J7120; U0002

== ENCOUNTER → 2023-02-25 | Outpatient (CLI) | payer OTHER ==
[~2023-02-25] MED LIST changes: +AFRIN15 M6; +DOXE25 PO; +KEPPRA250 M1 PO; +LACT PO; +LOSA25 PO; +Lopressor 25 mg25 MG PO; +METO100ER PO; +METO25ER PO; +PANT40 PO; +PERIDEX15 ML MM; +POTA20LUD PO; +SPIR25 PO
[2023-02-27 08:14] LABS: A/G RATIO 1.2 (1.2-2.2); BILIRUBIN, TOTAL 0.8 mg/dL (0.0-1.2); CALCIUM, SERUM 8.8 mg/dL (8.6-10.2); CREATININE, SERUM 1.5 mg/dL (0.76-1.27); GLOBULIN, TOTAL 3.3 g/dL (1.5-4.5); POTASSIUM, SERUM 4.6 mmol/L (3.5-5.2); PROTEIN, TOTAL, SERUM 7.2 g/dL (6.0-8.5)
== END ==
LOC: LAB SHORT 17:10 → LAB 17:10
PROVIDERS: Family Medicine
DX: I10 Essential (primary) hypertension (principal)
CPT/HCPCS: 80053

== ENCOUNTER 2023-05-23 18:59 | Observation (INO) | payer OTHER ==
[~2023-05-23] VITALS: Ht 185.4 cm; Wt 127.7 kg
[2023-05-23] MEDS ORDERED: Acetaminophen 500 MG Tab PO ONE (21:05)
[2023-05-23] MEDS ORDERED: REMERON1510 PO (21:20)
[2023-05-23] MEDS ORDERED: Spironolactone 25 MG Tab PO ONE (22:15)
[2023-05-23] MEDS ORDERED: Doxepin HCL 25 MG CAP PO SCH (22:15)
[2023-05-23] MEDS ORDERED: Aspirin 81 MG Chew PO SCH (22:15)
[2023-05-23] MEDS ORDERED: Mirtazapine 15 MG Tab PO SCH (22:15)
[2023-05-23] MEDS ORDERED: Atorvastatin 10 MG Tab PO SCH (22:15)
[2023-05-24] MEDS ORDERED: Acetaminophen 325 MG TABLET PO PRN ×2 (04:15→22:25)
[2023-05-24] MEDS ORDERED: Aspirin 81 MG Chew PO SCH (09:00)
[2023-05-24] MEDS ORDERED: Pantoprazole Sodium 40 MG Tab PO SCH (09:00)
[2023-05-24] MEDS ORDERED: Spironolactone 25 MG Tab PO SCH (09:00)
[2023-05-24] MEDS ORDERED: Metoprolol Succinate 50 MG TABCR PO SCH (09:00)
[2023-05-24] MEDS ORDERED: Losartan Potassium 50 MG Tab PO SCH (09:00)
[2023-05-24 19:54] LABS: BASOPHILS ABSOLUTE AUTO 0.05 K/mm3 (0.00-0.23); BASOPHILS PERCENT AUTO 1 % (0-2); EOSINOPHILS ABSOLUTE AUTO 0.45 K/mm3 (0.00-0.68); EOSINOPHILS PERCENT AUTO 4 % (0-6); Hematocrit 39.3 % (37.0-53.0); IMMATURE GRAN ABSOLUTE AUTO 0.05 K/mm3 (0.00-0.10); IMMATURE GRAN PERCENT AUTO 1 % (0-1); LYMPHOCYTES PERCENT AUTO 17 % (21-46); MONOCYTES ABSOLUTE AUTO 0.71 K/mm3 (0.16-1.47); MONOCYTES PERCENT AUTO 7 % (4-13); Mean Corpuscular HGB Conc 33.1 g/dL (31.5-36.5); Mean Corpuscular Volume 88 fL (80-100); Mean Platelet Volume 9.1 fL (9.1-12.4); NEUTROPHILS ABSOLUTE AUTO 7.31 K/mm3 (1.96-9.15); NEUTROPHILS PERCENT AUTO 71 % (41-73); Platelet Count 305 K/mm3 (150-400); RDW Coefficient Variation 13.8 % (11.7-14.2); RDW Standard Deviation 44.3 fL (35.1-46.3); Red Blood Cell Count 4.48 M/mm3 (4.30-5.90); White Blood Cell Count 10.37 K/mm3 (4.00-11.30)
[2023-05-24 20:06] LABS: Albumin, Blood 2.9 g/dL (3.4-5.0); Albumin/Globulin Ratio 0.8 (0.8-1.8); Bilirubin, Total 0.7 mg/dL (0.1-1.0); Calcium, Blood 6.5 mg/dL (8.5-10.1); Creatinine, Blood 1.11 mg/dL (0.60-1.20); Globulin, Blood 3.8 g/dL (2.2-4.0); Potassium, Blood 3.5 mmol/L (3.5-5.5); Total Protein, Blood 6.7 g/dL (6.4-8.2)
[2023-05-24 20:51] VITALS: BP 152/100
[2023-05-24] MEDS ORDERED: FentaNYL Citrate 50 MCG/ML 2 ML Injection IV PRN (22:25)
[2023-05-24] MEDS ORDERED: Ondansetron HCl 2 MG / ML 2ML Vial IV PRN (22:25)
--- NOTE | 2023-05-25 04:53 | NUR ---
THIS GENTLEMAN WAS ADMITTED FROM THE ED LAST EVENING DUE TO RIGHT KNEE PAIN AFER SLIPPING ON WATER IN THE BATHROOM, HE ALSO HIT HIS HEAD IN THE PROCESS. CT OF THE HEAD NEGATIVE. HE CURRENTLY HAS A BRACE ON HIS RIGHT KNEE. HE IS NOT ABLE TO BEAR WEIGHT DUE TO THE DISCOMFORT. HE DENIED ANY PAIN ON ADMISSION, CAN HAVE PAIN MOMENTARILY IF HE MOVES INCORRECTLY. LUNG SOUNDS CLEAR BUT SLIGHTLY DECREASED IN THE BASES, RESPIRATIONS ARE EVEN AND UNLABORED. HEART TONES OF NORMAL RATE AND RHYTHM. NO EDEMA OF THE EXTREMITIES, LEFT FOOT A LITTLE COOLER THAN THE RIGHT, HE STATES THAT HIS FEET ARE ALWAYS ON THE COOL SIDE. PEDAL PULSES FAINT BUT PRESENT. RADIAL PULSES PRESENT. HE WEARS OXYGEN AT 2 LPM AT NIGHT AND IS SELF CARE WITH THIS. SNORING THROUGH THE HOURLY CHECKS. IS ABLE TO USE THE URINAL TO VOID.
[2023-05-25 05:15] VITALS: BP 170/81
[2023-05-25] MEDS ORDERED: Oxymetazoline 0.05% Nasal Relief Spray 15mL BTL PRN (06:30)
[2023-05-25 07:28] VITALS: BP 161/81
[2023-05-25 08:19] LABS: BASOPHILS ABSOLUTE AUTO 0.06 K/mm3 (0.00-0.23); BASOPHILS PERCENT AUTO 1 % (0-2); EOSINOPHILS ABSOLUTE AUTO 0.48 K/mm3 (0.00-0.68); EOSINOPHILS PERCENT AUTO 5 % (0-6); Hematocrit 37.9 % (37.0-53.0); Hemoglobin 12.6 g/dL (13.5-17.5); IMMATURE GRAN ABSOLUTE AUTO 0.04 K/mm3 (0.00-0.10); IMMATURE GRAN PERCENT AUTO 0 % (0-1); LYMPHOCYTES ABSOLUTE AUTO 1.89 K/mm3 (0.84-5.20); LYMPHOCYTES PERCENT AUTO 20 % (21-46); MONOCYTES ABSOLUTE AUTO 0.65 K/mm3 (0.16-1.47); MONOCYTES PERCENT AUTO 7 % (4-13); Mean Corpuscular HGB 29.2 pg (26.0-34.0); Mean Corpuscular HGB Conc 33.2 g/dL (31.5-36.5); Mean Corpuscular Volume 88 fL (80-100); Mean Platelet Volume 9.2 fL (9.1-12.4); NEUTROPHILS ABSOLUTE AUTO 6.16 K/mm3 (1.96-9.15); NEUTROPHILS PERCENT AUTO 66 % (41-73); Platelet Count 296 K/mm3 (150-400); RDW Coefficient Variation 13.8 % (11.7-14.2); RDW Standard Deviation 44.3 fL (35.1-46.3); Red Blood Cell Count 4.31 M/mm3 (4.30-5.90); White Blood Cell Count 9.28 K/mm3 (4.00-11.30)
[2023-05-25 08:46] LABS: Albumin, Blood 2.8 g/dL (3.4-5.0); Albumin/Globulin Ratio 0.8 (0.8-1.8); Calcium, Blood 6.2 mg/dL (8.5-10.1); Creatinine, Blood 0.94 mg/dL (0.60-1.20); Globulin, Blood 3.6 g/dL (2.2-4.0); Potassium, Blood 3.2 mmol/L (3.5-5.5); Total Protein, Blood 6.4 g/dL (6.4-8.2)
[2023-05-25 09:04] VITALS: BP 154/89
[2023-05-25 09:37] LABS: Phosphorus, Blood 3.8 mg/dL (2.5-4.9)
[2023-05-25 09:39] LABS: Magnesium, Blood 0.7 mg/dL (1.6-2.4)
[2023-05-25] MEDS ORDERED: Magnesium Sulf 2 GM/Water 50ML 50 ML IV ONE (09:45)
[2023-05-25] MEDS ORDERED: NS 250 ML IV PRN (10:35)
[2023-05-25 14:42] VITALS: BP 150/88
[2023-05-25] MEDS ORDERED: Acetaminophen650 M1 PO (16:06)
[2023-05-25 16:55] LABS: Influenza A, PCR NEGATIVE (NEGATIVE); Influenza B, PCR NEGATIVE (NEGATIVE); Resp Syncytial Virus, PCR NEGATIVE (NEGATIVE); SARS-Cov-2 (COVID-19) PCR, MMC NEGATIVE (NEGATIVE)
--- NOTE | 2023-05-25 18:19 | NUR ---
DISCHARGE NOTE- SPOKE TO SCOTTY MARTINEZ AT [facility] AND GAVE TELEPHONE REPORT, NO FURTHER QUESTIONS AT THE TIME OF DISCHARGE. PT WAS SCHEDULED TO LEAVE VIA TRANSPORT AT 1730, PT STILL AWAITING TRANSPORT AT THE TIME OF REPORT.
--- NOTE | 2023-05-25 19:44 | NUR ---
SHIFT SUMMARY- PER CARE MANAGEMENT NOTE THE PT WAS TO BE PICKED UP BY TRANSPORT AT 1730. JUAN RAE CALLED AND CONFIRMED AND IRONED OUT THE ISSUES WITH TRANSPORT. PT AND FAMILY WANT HIM TO DC TODAY. PASSED ON IN REPORT TO NIGHT JUAN JOYNER, PT IN BED CALL LIGHT IN REACH, NO S&S OF DISTRESS NOTED.
== END 2023-05-25 20:46 ==
LOC: ER 18:59 → MEDS 19:01 → ER 05-24 19:00 → MEDS 05-24 19:00 → EDPENDDIS 05-25 16:21 → ENPENDDIS 05-25 16:21 → MEDS 05-25 20:46
PROVIDERS: Emergency Medicine; Internal Medicine; ADMIT Internal Medicine
DX: S82.831A Other fracture of upper and lower end of right fibula, initial encounter for closed fracture (principal); S09.90XA Unspecified injury of head, initial encounter; W18.30XA Fall on same level, unspecified, initial encounter; I10 Essential (primary) hypertension; E78.5 Hyperlipidemia, unspecified; K21.9 Gastro-esophageal reflux disease without esophagitis; I25.10 Atherosclerotic heart disease of native coronary artery without angina pectoris; Z87.39 Personal history of other diseases of the musculoskeletal system and connective tissue; Z86.73 Personal history of transient ischemic attack (TIA), and cerebral infarction without residual deficits; Z79.82 Long term (current) use of aspirin; Z79.899 Other long term (current) drug therapy; Z88.6 Allergy status to analgesic agent
CPT/HCPCS: 0241U; 29505; 36415; 70450; 73562-RT; 80053; 83735; 84100; 85025; 96365; 96366; 97110; 97140; 97161; 97165; 97530; 99285-25; A9270; G0378; J3475; J7050

== ENCOUNTER 2024-02-08 11:46 | Inpatient (IN) | payer OTHER ==
[~2024-02-08] VITALS: Ht 185.4 cm; Wt 127.0 kg
[~2024-02-08 11:46] MED LIST changes: +Acetaminophen650 M1 PO; +REMERON1510 PO; +TAMSULOSIN HCL0.4 M1 PO
[2024-02-08 13:13] LABS: BASOPHILS PERCENT AUTO 1 % (0-2); EOSINOPHILS ABSOLUTE AUTO 0.32 K/mm3 (0.00-0.68); EOSINOPHILS PERCENT AUTO 2 % (0-6); Hematocrit 43.7 % (37.0-53.0); Hemoglobin 14.4 g/dL (13.5-17.5); IMMATURE GRAN ABSOLUTE AUTO 0.13 K/mm3 (0.00-0.10); IMMATURE GRAN PERCENT AUTO 1 % (0-1); LYMPHOCYTES ABSOLUTE AUTO 2.04 K/mm3 (0.84-5.20); LYMPHOCYTES PERCENT AUTO 14 % (21-46); MONOCYTES ABSOLUTE AUTO 1.14 K/mm3 (0.16-1.47); MONOCYTES PERCENT AUTO 8 % (4-13); Mean Corpuscular HGB 29.6 pg (26.0-34.0); Mean Corpuscular Volume 90 fL (80-100); Mean Platelet Volume 9.7 fL (9.1-12.4); NEUTROPHILS ABSOLUTE AUTO 10.75 K/mm3 (1.96-9.15); NEUTROPHILS PERCENT AUTO 74 % (41-73); Platelet Count 367 K/mm3 (150-400); RDW Coefficient Variation 13.4 % (11.7-14.2); RDW Standard Deviation 44.1 fL (35.1-46.3); Red Blood Cell Count 4.86 M/mm3 (4.30-5.90); White Blood Cell Count 14.48 K/mm3 (4.00-11.30)
[2024-02-08] MEDS ORDERED: NS 1,000 ML IV SCH ×3 (13:20→18:00)
[2024-02-08 14:02] LABS: Albumin, Blood 2.7 g/dL (3.4-5.0); Albumin/Globulin Ratio 0.6 (0.8-1.8); Bilirubin, Total 1.8 mg/dL (0.1-1.0); Bun/Creatinine Ratio 12.8 (12.0-20.0); Calcium, Blood 5.3 mg/dL (8.5-10.1); Creatinine, Blood 1.88 mg/dL (0.60-1.20); Globulin, Blood 4.3 g/dL (2.2-4.0); Potassium, Blood 2.7 mmol/L (3.5-5.5)
[2024-02-08 14:13] LABS: Influenza A, PCR NEGATIVE (NEGATIVE); Influenza B, PCR NEGATIVE (NEGATIVE); Resp Syncytial Virus, PCR NEGATIVE (NEGATIVE); SARS-Cov-2 (COVID-19) PCR, MMC NEGATIVE (NEGATIVE)
[2024-02-08] MEDS ORDERED: Vancomycin HCL 2,000 MG in NS 520 ML IV ONE (14:25)
[2024-02-08] MEDS ORDERED: Cefepime HCl 1,000 MG in NS 100 ML IV ONE (14:25)
[2024-02-08] MEDS ORDERED: POTASSIUM CHLORIDE 80 MEQ IV SCH (15:30)
[2024-02-08] MEDS ORDERED: CALCIUM GLUC IN NACL, ISO-OSM 100 ML IV ONE ×2 (15:30→17:20)
[2024-02-08] MEDS ORDERED: Potassium Chloride 40 MEQ in NS 250 ML IV SCH (15:35)
[2024-02-08] MEDS ORDERED: FLU VACC TS2024-25(6MOS UP)/PF 45 MCG/0.5 ML SYRINGE IM ONE (17:45)
[2024-02-08] MEDS ORDERED: Albuterol 2.5 MG/3 ML VIAL INH PRN (17:45)
[2024-02-08] MEDS ORDERED: Ampicillin Sod/Sulbactam Sod 1.5 GM in NS 100 ML IV SCH (18:00)
[2024-02-08 18:02] LABS: Albumin, Blood 2.2 g/dL (3.4-5.0); Albumin/Globulin Ratio 0.6 (0.8-1.8); Bilirubin, Total 1.4 mg/dL (0.1-1.0); Bun/Creatinine Ratio 13.5 (12.0-20.0); Creatinine, Blood 1.71 mg/dL (0.60-1.20); Globulin, Blood 3.8 g/dL (2.2-4.0); Potassium, Blood 2.8 mmol/L (3.5-5.5)
[2024-02-08] MEDS ORDERED: Ampicillin Sod/Sulbactam Sod 3 GM in NS 100 ML IV SCH (18:30)
[2024-02-08] MEDS ORDERED: Magnesium Sul 4 GM/Water100 ML 100 ML IV SCH (18:30)
[2024-02-08 18:33] LABS: Source, Urine Clean Catch
[2024-02-08 18:36] LABS: Appearance, Urine Cloudy (Clear); Bilirubin, Urine Neg (Neg); Blood, Urine 5+ (Neg); Color, Urine Yellow (P-Yellow); Glucose Qualitative, Urine Neg (Neg); Ketones, Urine 1+ (Neg); Leukocyte Esterase, Urine 3+ (Neg); Nitrite, Urine Neg (Neg); Protein, Urine 3+ (Neg); Urobilinogen, Urine NORM (Normal)
[2024-02-08 18:43] LABS: White Blood Cells, Urine TNTC /hpf (0-5)
[2024-02-08 18:44] LABS: Bacteria Many /hpf; Squamous Epithelial Cells Few /hpf (Few)
[2024-02-08] MEDS ORDERED: Lactated Ringer's 1,000 ML IV SCH (19:00)
[2024-02-08 20:29] LABS: Adenovirus Not Detected (NOT DETECT); Bordetella pertussis Not Detected (NOT DETECT); Chlamydophila pneumoniae Not Detected (NOT DETECT); Coronavirus 229E Not Detected (NOT DETECT); Coronavirus HKU1 Not Detected (NOT DETECT); Coronavirus NL63 Not Detected (NOT DETECT); Coronavirus OC43 Not Detected (NOT DETECT); Human Metapneumovirus Not Detected (NOT DETECT); Human Rhinovirus/Enterovirus Not Detected (NOT DETECT); Influenza A/2009-H1 Not Detected (NOT DETECT); Influenza A/H1 Not Detected (NOT DETECT); Influenza A/H3 Not Detected (NOT DETECT); Influenza B Not Detected (NOT DETECT); Mycoplasma pneumoniae Not Detected (NOT DETECT); Parainfluenza Virus 1 Not Detected (NOT DETECT); Parainfluenza Virus 2 Not Detected (NOT DETECT); Parainfluenza Virus 3 Not Detected (NOT DETECT); Parainfluenza Virus 4 Not Detected (NOT DETECT); Respiratory Syncytial Virus Not Detected (NOT DETECT); SARS-Cov-2 (COVID-19), BioFire Not Detected (NOT DETECT)
[2024-02-08 21:53] VITALS: BP 152/77
[2024-02-09 00:50] LABS: Bun/Creatinine Ratio 12.4 (12.0-20.0); Calcium, Blood 5.4 mg/dL (8.5-10.1); Creatinine, Blood 1.7 mg/dL (0.60-1.20); Magnesium, Blood 1.1 mg/dL (1.6-2.4); Potassium, Blood 2.8 mmol/L (3.5-5.5)
[2024-02-09 01:19] LABS: Phosphorus, Blood 3.9 mg/dL (2.5-4.9)
[2024-02-09] MEDS ORDERED: Potassium Chloride 40 MEQ in NS 250 ML IV ONE ×3 (01:20→19:40)
[2024-02-09] MEDS ORDERED: Magnesium Sulf 2 GM/Water 50ML 50 ML IV ONE (01:20)
[2024-02-09] MEDS ORDERED: CALCIUM GLUC IN NACL, ISO-OSM 100 ML IV ONE ×3 (01:20→21:10)
[2024-02-09 05:26] VITALS: BP 163/82
[2024-02-09 06:14] LABS: BASOPHILS ABSOLUTE AUTO 0.04 K/mm3 (0.00-0.23); BASOPHILS PERCENT AUTO 0 % (0-2); EOSINOPHILS ABSOLUTE AUTO 0.27 K/mm3 (0.00-0.68); EOSINOPHILS PERCENT AUTO 3 % (0-6); Hematocrit 40.1 % (37.0-53.0); IMMATURE GRAN ABSOLUTE AUTO 0.08 K/mm3 (0.00-0.10); IMMATURE GRAN PERCENT AUTO 1 % (0-1); LYMPHOCYTES ABSOLUTE AUTO 1.09 K/mm3 (0.84-5.20); LYMPHOCYTES PERCENT AUTO 10 % (21-46); MONOCYTES ABSOLUTE AUTO 0.59 K/mm3 (0.16-1.47); MONOCYTES PERCENT AUTO 5 % (4-13); Mean Corpuscular HGB Conc 32.4 g/dL (31.5-36.5); Mean Corpuscular Volume 93 fL (80-100); Mean Platelet Volume 9.4 fL (9.1-12.4); NEUTROPHILS ABSOLUTE AUTO 8.85 K/mm3 (1.96-9.15); NEUTROPHILS PERCENT AUTO 81 % (41-73); Platelet Count 298 K/mm3 (150-400); RDW Coefficient Variation 13.5 % (11.7-14.2); RDW Standard Deviation 45.8 fL (35.1-46.3); Red Blood Cell Count 4.33 M/mm3 (4.30-5.90); White Blood Cell Count 10.92 K/mm3 (4.00-11.30)
--- NOTE | 2024-02-09 06:23 | NUR ---
Pt admitted from ED last night with dyspnea, and difficulty swallowing. states his oral intake has been poor. He will recieve a CHEMICAL ENGINEER eval today and remains NPO till then. Pt was given mouth swabs for dry mouth. 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 Pt on O2 @ 2L with sats in mid 90's. Tele runs NSR in 70's. awaiting abdominal US, and labs were checked frequently in night d/t low K+, Ca, and Mg. All replacements given IVPB. Pt recieved 3L of IV bolus, and then LR at 150ml/ hr for 3 hrs, then was d/c. Pt out was above average at 900mls. Pt does have home meds for HTN, and these will need to be ordered, med req completed.
[2024-02-09 06:42] LABS: Magnesium, Blood 1.6 mg/dL (1.6-2.4)
[2024-02-09 06:54] LABS: Albumin, Blood 2.4 g/dL (3.4-5.0); Albumin/Globulin Ratio 0.6 (0.8-1.8); Bilirubin, Total 1.8 mg/dL (0.1-1.0); Bun/Creatinine Ratio 12.7 (12.0-20.0); Creatinine, Blood 1.5 mg/dL (0.60-1.20); Globulin, Blood 3.8 g/dL (2.2-4.0); Phosphorus, Blood 3.7 mg/dL (2.5-4.9); Total Protein, Blood 6.2 g/dL (6.4-8.2)
[2024-02-09 07:17] VITALS: BP 150/92
[2024-02-09] MEDS ORDERED: Heparin Sodium 5000 Units/ML 1ML MDV SC SCH (09:00)
[2024-02-09] MEDS ORDERED: Metoprolol Succinate 50 MG TABCR PO SCH (09:00)
[2024-02-09 15:16] VITALS: BP 136/72
--- NOTE | 2024-02-09 16:58 | NUR ---
SHIFT SUMMARY PT AOX4, BR AT THIS TIME BUT DID WORK WITH PT AND OT THIS SHIFT. REPOSITIONED THROUGHOUT THE SHIFT. NO COMPLAINTS BY THE PT. MULTIPLE FAMILY MEMBERS AT THE BS THIS SHIFT. PT USES THE URINAL INDEPENDENTLY. NO EVENTS PER TELE. CALL LIGHT WITHIN REACH, BED LOCKED AND IN THE LOWEST POSITION. WILL REPORT TO ONCOMING NURSE.
[2024-02-09 19:11] LABS: Magnesium, Blood 1.2 mg/dL (1.6-2.4)
[2024-02-09 19:22] LABS: Bun/Creatinine Ratio 12.1 (12.0-20.0); Calcium, Blood 5.8 mg/dL (8.5-10.1); Creatinine, Blood 1.41 mg/dL (0.60-1.20); Phosphorus, Blood 2.3 mg/dL (2.5-4.9); Potassium, Blood 2.9 mmol/L (3.5-5.5)
[2024-02-09] MEDS ORDERED: Magnesium Sulf 2 GM/Water 50ML 50 ML IV STA (19:39)
[2024-02-09] MEDS ORDERED: NS 250 ML IV PRN (20:15)
[2024-02-09 20:35] VITALS: BP 148/85
[2024-02-10 00:38] LABS: Calcium, Blood 6.3 mg/dL (8.5-10.1); Creatinine, Blood 1.31 mg/dL (0.60-1.20); Magnesium, Blood 1.5 mg/dL (1.6-2.4)
[2024-02-10] MEDS ORDERED: Magnesium Sulf 2 GM/Water 50ML 50 ML IV SCH (00:50)
[2024-02-10] MEDS ORDERED: CALCIUM GLUC IN NACL, ISO-OSM 100 ML IV ONE ×2 (00:50→10:10)
[2024-02-10] MEDS ORDERED: Potassium Chloride 40 MEQ in NS 250 ML IV ONE (00:55)
--- NOTE | 2024-02-10 01:27 | NUR ---
PT CHEMISTRY PANEL @ 1846 SHOWED CRITICAL CA+ 5.8, MG 1.2, K 2.9, AND PHOS 2.3. PT ASYMPTOMATIC NO C/O CP, PALPITATIONS, N/V. HAT CONE INSPECTOR RESIDENT NOTIFIED AND ORDERS PUT IN FOR CA+, MG, K REPLACEMENTS AND RECHECK @ 0000.
--- NOTE | 2024-02-10 01:37 | NUR ---
LAB DRAW @ 0000 SHOWED IMPROVEMENT IN CA+ 6.3, MG 1.5, AND K 3.0 WHICH IS STILL INFUSING DUE TO SLOWING RATE FOR DISCOMFORT. HOSPITALIST NOTIFIED AND ADDITIONAL REPLACEMENTS OF CA+, MG, AND K ORDERED AND STARTED. HOSPITALIST CAME TO FLOOR TO ASSESS PT AND PT AGAIN DENIED CP, PALPITATIONS, N/V, DIARRHEA, DISCOMFORT, BUT ENDORSED CHRONIC ELECTROLYTE IMBALANCES. HOSPITALIST ORDERED 24 HR COLLECTION ORDERED.
[2024-02-10 05:01] VITALS: BP 149/103
--- NOTE | 2024-02-10 05:15 | NUR ---
SHIFT SUMMARY NOC PT A/O X 3-4. PLEASANT AND COOPERATIVE WITH CARE. VSS. PT CA+, MG, AND K LOWER AFTER LAB DRAW BEFORE SHIFT CHANGE. MANAGER FORENSIC RESIDENT NOTIFIED AND ORDERS FOR REPLACEMENT CA+, MG, K PUT IN AND GIVEN. LABS REDRAWN @ 0000 SHOWED IMPROVED CA+ 6.3, MG 1.5, AND K 3.0 WITH K STILL INFUSING DUT TO PT DISCOMFORT AND RATE DECREASED. HOSPITALIST NOTIFIED OF NEW LABS AND FURTHER REPLACEMENTS OF CA+, MG, AND K GIVEN, LAB WILL REDRAW @ 0600. PT REPORTS CHRONIC ELECTROLYTE IMBALANCES AND WELL PT SPOUSE WHO SAID PT USED TO BE FOLLOWED BY DR TUCKER FOR NEPHROLOGY, BUT UNSURE OF WHAT CONDITION PT HAD. MANAGER FORENSIC RESIDENT ORDERED 24 HR URINE COLLECTION THAT STARTED @ 0150 02/10/24 AND ENDS 02/11/24 @ 0150. PT ON TELE SINUS RHYTHM IN 70'S. BRACE IN PLACE ON RLE FOR TIB/FIB FX. PT NOW HAS ORDER FOR PICC LINE PLACEMENT IN PLACE DUE TO REQUIRING SO MANY IV ELECTROLYTE REPLACEMENTS WELL IV ABX. PT CURRENTLY RESTING WITH BED IN LOWEST POSITION, AND CALL LIGHT WITHIN REACH.
[2024-02-10 06:43] LABS: BASOPHILS ABSOLUTE AUTO 0.06 K/mm3 (0.00-0.23); BASOPHILS PERCENT AUTO 1 % (0-2); EOSINOPHILS ABSOLUTE AUTO 0.49 K/mm3 (0.00-0.68); EOSINOPHILS PERCENT AUTO 4 % (0-6); IMMATURE GRAN ABSOLUTE AUTO 0.09 K/mm3 (0.00-0.10); IMMATURE GRAN PERCENT AUTO 1 % (0-1); LYMPHOCYTES ABSOLUTE AUTO 1.31 K/mm3 (0.84-5.20); LYMPHOCYTES PERCENT AUTO 12 % (21-46); MONOCYTES ABSOLUTE AUTO 0.84 K/mm3 (0.16-1.47); MONOCYTES PERCENT AUTO 8 % (4-13); Mean Corpuscular HGB 30.2 pg (26.0-34.0); Mean Corpuscular HGB Conc 32.5 g/dL (31.5-36.5); Mean Corpuscular Volume 93 fL (80-100); Mean Platelet Volume 9.5 fL (9.1-12.4); NEUTROPHILS ABSOLUTE AUTO 8.29 K/mm3 (1.96-9.15); NEUTROPHILS PERCENT AUTO 75 % (41-73); Platelet Count 302 K/mm3 (150-400); RDW Coefficient Variation 13.3 % (11.7-14.2); RDW Standard Deviation 45.6 fL (35.1-46.3); Red Blood Cell Count 4.31 M/mm3 (4.30-5.90); White Blood Cell Count 11.08 K/mm3 (4.00-11.30)
[2024-02-10 07:46] VITALS: BP 162/97
[2024-02-10 08:25] LABS: Albumin, Blood 2.4 g/dL (3.4-5.0); Anion Gap 12 mmol/L (3-11); Blood Urea Nitrogen 15 mg/dL (8-24); Bun/Creatinine Ratio 11.7 (12.0-20.0); CO2, Blood 29 mmol/L (21-32); Calcium, Blood 6.7 mg/dL (8.5-10.1); Chloride, Blood 103 mmol/L (98-108); Creatinine, Blood 1.28 mg/dL (0.60-1.20); Glomerular Filtration Rate 56 (60-); Glucose, Blood 100 mg/dL (70-99); Magnesium, Blood 2.3 mg/dL (1.6-2.4); Phosphorus, Blood 2.9 mg/dL (2.5-4.9); Potassium, Blood 3.2 mmol/L (3.5-5.5); Sodium, Blood 141 mmol/L (136-145)
[2024-02-10] MEDS ORDERED: Potassium Phosphate Dibasic 30 MM in Dextrose 5% 500 ML IV STA (08:30)
[2024-02-10] MEDS ORDERED: Potassium Chloride 40 MEQ in NS 250 ML IV STA (10:08)
[2024-02-10 15:27] VITALS: BP 134/87
[2024-02-10 16:03] LABS: Albumin, Blood 2.2 g/dL (3.4-5.0); Anion Gap 11 mmol/L (3-11); Blood Urea Nitrogen 15 mg/dL (8-24); Bun/Creatinine Ratio 11.7 (12.0-20.0); CO2, Blood 28 mmol/L (21-32); Calcium, Blood 6.3 mg/dL (8.5-10.1); Chloride, Blood 103 mmol/L (98-108); Creatinine, Blood 1.28 mg/dL (0.60-1.20); Glomerular Filtration Rate 56 (60-); Glucose, Blood 152 mg/dL (70-99); Phosphorus, Blood 2.1 mg/dL (2.5-4.9); Potassium, Blood 3.9 mmol/L (3.5-5.5); Sodium, Blood 138 mmol/L (136-145)
[2024-02-10] MEDS ORDERED: CALCIUM GLUC IN NACL, ISO-OSM 100 ML IV SCH (17:15)
--- NOTE | 2024-02-10 18:10 | NUR ---
SHIFT SUMMARY PT A&O 3 AND IS OCCASIONALY CONFUSED. ABLE TO BE REORIENTED. 24HR URINE COLLECTION CONTINUING, COLLECTED AND KEPT ON ICE. VSS, NO COMPLAINTS OF CP/PRESSURE OR SOB. PT RECEIVED SCHEDULED MEDICATIONS. PT BEDREST DUE TO NONWEIGHT BEARING ON LEG. REPOSITIONED Q2HRS. NO ACUTE EVENTS AT THIS TIME. PT SPENT MOST OF SHIFT IN BED. PT LEFT IN A POSITION OF SAFETY WITH FALL PRECAUTIONS IN PLACE AND CALL LIGHT IN REACH.
[2024-02-10 20:07] VITALS: BP 140/74
[2024-02-11 03:48] LABS: Protein, Urine Quantitative 42.3 mg/dL (0.0-11.9)
[2024-02-11 03:56] VITALS: BP 160/84
--- NOTE | 2024-02-11 05:05 | NUR ---
SHIFT SUMMARY PT IS A/OX3-4, SOME CONFUSION TO THE TIME. PT ON 2L NC, PT REPORTS TO USE 2L NC AT NIGHT AT BASELINE. ON TELE RUNNING NORMAL SINUS RYTHYM IN THE 'S. MEDS WHOLE WITH APPLESAUCE. CONTINUES ABX TREATMENT. 24 HR URINE SAMPLE COLLECTED AT 0150. USES URINAL AT BEDSIDE INDEPENDENTLY.
[2024-02-11 05:30] LABS: Albumin, Blood 2.2 g/dL (3.4-5.0); Anion Gap 11 mmol/L (3-11); Blood Urea Nitrogen 14 mg/dL (8-24); Bun/Creatinine Ratio 11.8 (12.0-20.0); CO2, Blood 27 mmol/L (21-32); Calcium, Blood 6.8 mg/dL (8.5-10.1); Chloride, Blood 102 mmol/L (98-108); Creatinine, Blood 1.19 mg/dL (0.60-1.20); Glomerular Filtration Rate 61 (60-); Glucose, Blood 99 mg/dL (70-99); Magnesium, Blood 1.7 mg/dL (1.6-2.4); Phosphorus, Blood 2.7 mg/dL (2.5-4.9); Potassium, Blood 3.2 mmol/L (3.5-5.5); Sodium, Blood 137 mmol/L (136-145)
[2024-02-11 05:41] LABS: Calcium, Urine 6.8 mg/dL (< 17.5)
[2024-02-11 05:49] LABS: Urine Magnesium 11.4 mg/dL
[2024-02-11] MEDS ORDERED: Potassium Phosphate Dibasic 30 MM in Dextrose 5% 500 ML IV STA (07:01)
[2024-02-11] MEDS ORDERED: CALCIUM GLUC IN NACL, ISO-OSM 100 ML IV ONE (07:05)
[2024-02-11 07:25] VITALS: BP 162/90
[2024-02-11] MEDS ORDERED: Acetaminophen 325 MG TABLET PO PRN (07:45)
[2024-02-11] MEDS ORDERED: Aspirin 81 MG Chew PO SCH (09:00)
[2024-02-11] MEDS ORDERED: Tamsulosin HCl 0.4 MG Cap PO SCH (09:00)
[2024-02-11] MEDS ORDERED: Spironolactone 25 MG Tab PO SCH (09:00)
[2024-02-11] MEDS ORDERED: Ciprofloxacin 500 MG Tab PO SCH (09:00)
[2024-02-11] MEDS ORDERED: Losartan Potassium 25 MG Tab PO SCH (09:00)
[2024-02-11 09:08] LABS: Creatinine Urine 57.6 mg/dL (27.00-270.00)
[2024-02-11 12:27] LABS: Albumin, Blood 2.2 g/dL (3.4-5.0); Anion Gap 12 mmol/L (3-11); Blood Urea Nitrogen 13 mg/dL (8-24); Bun/Creatinine Ratio 10.7 (12.0-20.0); CO2, Blood 28 mmol/L (21-32); Calcium, Blood 7.4 mg/dL (8.5-10.1); Chloride, Blood 101 mmol/L (98-108); Creatinine, Blood 1.21 mg/dL (0.60-1.20); Glomerular Filtration Rate 60 (60-); Glucose, Blood 121 mg/dL (70-99); Magnesium, Blood 1.6 mg/dL (1.6-2.4); Phosphorus, Blood 3.2 mg/dL (2.5-4.9); Potassium, Blood 3.4 mmol/L (3.5-5.5); Sodium, Blood 138 mmol/L (136-145)
[2024-02-11] MEDS ORDERED: CALCIUM CARBON500 M1 PO (15:17)
[2024-02-11] MEDS ORDERED: LEVOFLOXACIN750 MG PO (15:18)
[2024-02-11] MEDS ORDERED: CALCIUM CIT 311 EAC7 PO (15:18)
[2024-02-11] MEDS ORDERED: MAGNESIUM L-LAC84 MG PO (15:19)
[2024-02-11] MEDS ORDERED: POTCHL20ER PO (15:20)
[2024-02-11] MEDS ORDERED: [UNRECOGNIZED DRUG - CODE] (15:27)
[2024-02-11 15:39] VITALS: BP 139/75
--- NOTE | 2024-02-11 18:06 | NUR ---
PT DISCHARGED TODAY AT 1702 WITH TO TRANSPORT. SON CAME TO HELP WITH PT GETTING INTO FAMILY CAR. DR BROWN WENT OVER ALL MEDICATIONS WITH PT'S AND HELPING TO ARRANGE FOLLOW UP APPOINTMENT AT [facility]. PAPERWORK AND EDUCATION REVIEWED AND SENT WITH PT. PT TRANSFERED TO EXIT VIA WHEEL CHAIR. ALL PERSONAL BELOINGS COLLECT AND TAKEN WITH HIM.
[2024-02-11] MEDS ORDERED: Atorvastatin 40 MG Tab PO SCH (21:00)
== END 2024-02-11 17:03 | disposition home health service (06) | DRG 871 ==
LOC: ER 11:46 → MEDS 11:47 → ERHOLD 11:47 → MEDS 22:00
PROVIDERS: Family Medicine; Student in an Organized Health Care Education/Training Program; ADMIT Internal Medicine
DX: A41.9 Sepsis, unspecified organism (principal); J18.9 Pneumonia, unspecified organism; J96.01 Acute respiratory failure with hypoxia; J69.0 Pneumonitis due to inhalation of food and vomit; N17.9 Acute kidney failure, unspecified; E87.20 Acidosis, unspecified; I50.32 Chronic diastolic (congestive) heart failure; N39.0 Urinary tract infection, site not specified; R65.20 Severe sepsis without septic shock; R13.10 Dysphagia, unspecified; K21.9 Gastro-esophageal reflux disease without esophagitis; I11.0 Hypertensive heart disease with heart failure; R91.1 Solitary pulmonary nodule; E87.6 Hypokalemia; E83.51 Hypocalcemia; R74.01 Elevation of levels of liver transaminase levels; Z66 Do not resuscitate; I25.10 Atherosclerotic heart disease of native coronary artery without angina pectoris; Z86.73 Personal history of transient ischemic attack (TIA), and cerebral infarction without residual deficits; Z95.5 Presence of coronary angioplasty implant and graft; R73.03 Prediabetes; Z85.46 Personal history of malignant neoplasm of prostate; M48.00 Spinal stenosis, site unspecified; H91.90 Unspecified hearing loss, unspecified ear; Z98.890 Other specified postprocedural states; Z87.891 Personal history of nicotine dependence; Z88.8 Allergy status to other drugs, medicaments and biological substances; Z79.82 Long term (current) use of aspirin; Z79.899 Other long term (current) drug therapy
CPT/HCPCS: 0202U; 0241U; 36415; 70450; 71045; 76705; 76770; 80048; 80053; 80069; 80320; 81001; 81050; 82306; 82330; 82340; 82570; 83605; 83690; 83735; 83970; 84100; 84133; 84145; 84156; 85025; 87077; 87086; 87186; 87449; 92526; 92610; 93005; 93010; 94760; 94761; 96361; 96365; 96366; 96367; 96368; 96375; 96376; 97110; 97162; 97165; 97530; 97535; 99285-25; A9270; J0295; J0612; J0692; J1644; J3370; J3475; J3480; J7030; J7040; J7050; J7060; J7120

== ENCOUNTER 2024-02-16 17:21 | Observation (INO) | payer OTHER ==
[~2024-02-16] VITALS: Ht 185.4 cm; Wt 117.5 kg
[~2024-02-16 17:21] MED LIST changes: +CALCIUM CARBON500 M1 PO; +CALCIUM CIT 311 EAC7 PO; +LEVOFLOXACIN750 MG PO; +MAGNESIUM L-LAC84 MG PO; +[UNRECOGNIZED DRUG - CODE]
[2024-02-16 19:22] LABS: BASOPHILS ABSOLUTE AUTO 0.06 K/mm3 (0.00-0.23); BASOPHILS PERCENT AUTO 1 % (0-2); EOSINOPHILS PERCENT AUTO 2 % (0-6); Hematocrit 38.4 % (37.0-53.0); Hemoglobin 12.7 g/dL (13.5-17.5); IMMATURE GRAN PERCENT AUTO 1 % (0-1); LYMPHOCYTES ABSOLUTE AUTO 1.48 K/mm3 (0.84-5.20); LYMPHOCYTES PERCENT AUTO 12 % (21-46); MONOCYTES PERCENT AUTO 7 % (4-13); Mean Corpuscular HGB 30.4 pg (26.0-34.0); Mean Corpuscular HGB Conc 33.1 g/dL (31.5-36.5); Mean Corpuscular Volume 92 fL (80-100); Mean Platelet Volume 9.4 fL (9.1-12.4); NEUTROPHILS ABSOLUTE AUTO 9.63 K/mm3 (1.96-9.15); NEUTROPHILS PERCENT AUTO 78 % (41-73); Platelet Count 345 K/mm3 (150-400); RDW Coefficient Variation 13.6 % (11.7-14.2); RDW Standard Deviation 45.7 fL (35.1-46.3); Red Blood Cell Count 4.18 M/mm3 (4.30-5.90); White Blood Cell Count 12.37 K/mm3 (4.00-11.30)
[2024-02-16 19:44] LABS: Albumin, Blood 2.5 g/dL (3.4-5.0); Albumin/Globulin Ratio 0.5 (0.8-1.8); Bilirubin, Total 0.9 mg/dL (0.1-1.0); Bun/Creatinine Ratio 9.3 (12.0-20.0); Calcium, Blood 9.4 mg/dL (8.5-10.1); Creatinine, Blood 1.61 mg/dL (0.60-1.20); Globulin, Blood 4.6 g/dL (2.2-4.0); Potassium, Blood 4.4 mmol/L (3.5-5.5); Total Protein, Blood 7.1 g/dL (6.4-8.2)
[2024-02-16 19:49] LABS: Magnesium, Blood 1.4 mg/dL (1.6-2.4); Phosphorus, Blood 2.6 mg/dL (2.5-4.9)
[2024-02-16] MEDS ORDERED: NS 1,000 ML IV SCH (20:50)
[2024-02-16] MEDS ORDERED: Ondansetron HCl 2 MG / ML 2ML Vial IV PRN (22:30)
[2024-02-16] MEDS ORDERED: FLU VACC TS2024-25(6MOS UP)/PF 45 MCG/0.5 ML SYRINGE IM ONE (22:30)
[2024-02-16] MEDS ORDERED: Mag Sulfate 1 GM/D5% 100ML 100 ML IV STA (22:38)
[2024-02-16] MEDS ORDERED: Doxepin HCL 25 MG CAP PO PRN (22:45)
[2024-02-16] MEDS ORDERED: Lactated Ringer's 1,000 ML IV SCH (23:00)
[2024-02-17 00:43] VITALS: BP 133/66
--- NOTE | 2024-02-17 02:29 | NUR ---
REC'D TX FROM ER ACCOMPANIED BY STAFF. , CATHERINE, WENT HOME FOR THE NIGHT AND BROUGHT PT'S CELL PHONE TO CHARGE. ORIENTED TO ROOM AND CALL LIGHT SYSTEM, HOWEVER PT DOES NOT USE CALL LIGHT AND HOLLFERMIN FOR HELP QUITE AGGRESIVELY. AAOX4, POOR REMOTE HISTORIAN. ENCOURAGED TO SPEEK CLEARLY, SPEECH CAN BE MUMBLED. [place]. RA DURING THE DAY BUT 2 L O2 VIA NC FOR JOSEFINA. NWB RLE FOR MUSCLE REPAIN AROUND KNEE, NEEDS TO WEAR BACE FOR 2 MONTHS. WC TO MOVE AROUND WITH MAX ASSIST X 2 PIVOT TRANSFER. RECENTLY DC'D FROM HOSPITAL, HE WAS ADMITTED FOR PNU AND INCIDENTLY FOLLOW-UP APPT WAS 02/16/24 @ [facility] WHO SENT PT TO ER.
[2024-02-17 04:12] VITALS: BP 146/85
[2024-02-17 06:11] LABS: BASOPHILS ABSOLUTE AUTO 0.05 K/mm3 (0.00-0.23); BASOPHILS PERCENT AUTO 1 % (0-2); EOSINOPHILS ABSOLUTE AUTO 0.32 K/mm3 (0.00-0.68); EOSINOPHILS PERCENT AUTO 4 % (0-6); Hematocrit 36.9 % (37.0-53.0); Hemoglobin 12.1 g/dL (13.5-17.5); IMMATURE GRAN ABSOLUTE AUTO 0.11 K/mm3 (0.00-0.10); IMMATURE GRAN PERCENT AUTO 1 % (0-1); LYMPHOCYTES ABSOLUTE AUTO 1.83 K/mm3 (0.84-5.20); LYMPHOCYTES PERCENT AUTO 20 % (21-46); MONOCYTES ABSOLUTE AUTO 0.77 K/mm3 (0.16-1.47); MONOCYTES PERCENT AUTO 8 % (4-13); Mean Corpuscular HGB 30.2 pg (26.0-34.0); Mean Corpuscular HGB Conc 32.8 g/dL (31.5-36.5); Mean Corpuscular Volume 92 fL (80-100); Mean Platelet Volume 9.7 fL (9.1-12.4); NEUTROPHILS ABSOLUTE AUTO 6.11 K/mm3 (1.96-9.15); NEUTROPHILS PERCENT AUTO 67 % (41-73); Platelet Count 338 K/mm3 (150-400); RDW Coefficient Variation 13.7 % (11.7-14.2); Red Blood Cell Count 4.01 M/mm3 (4.30-5.90); White Blood Cell Count 9.19 K/mm3 (4.00-11.30)
[2024-02-17 07:01] LABS: Albumin, Blood 2.4 g/dL (3.4-5.0); Albumin/Globulin Ratio 0.6 (0.8-1.8); Bilirubin, Total 0.7 mg/dL (0.1-1.0); Bun/Creatinine Ratio 10.8 (12.0-20.0); Calcium, Blood 9.1 mg/dL (8.5-10.1); Creatinine, Blood 1.48 mg/dL (0.60-1.20); Globulin, Blood 4.3 g/dL (2.2-4.0); Magnesium, Blood 1.6 mg/dL (1.6-2.4); Potassium, Blood 4.1 mmol/L (3.5-5.5); Total Protein, Blood 6.7 g/dL (6.4-8.2)
[2024-02-17] MEDS ORDERED: Potassium Phos/Sodium Phos 250 MG PACK PO SCH (08:00)
[2024-02-17 08:12] VITALS: BP 149/69
[2024-02-17] MEDS ORDERED: Lactobacil 2-S.Thermo-Bifido 1 1 Cap PO SCH (09:00)
[2024-02-17] MEDS ORDERED: Tamsulosin HCl 0.4 MG Cap PO SCH (09:00)
[2024-02-17] MEDS ORDERED: Aspirin 81 MG Chew PO SCH (09:00)
[2024-02-17] MEDS ORDERED: Atorvastatin 40 MG Tab PO SCH (09:00)
[2024-02-17] MEDS ORDERED: Enoxaparin 40 MG/0.4 ML SYR SC SCH (09:00)
[2024-02-17] MEDS ORDERED: Metoprolol Succinate 25 MG TABCR PO SCH (09:00)
[2024-02-17] MEDS ORDERED: Calcium Carbonate 1,250 MG TABLET PO SCH (12:30)
--- NOTE | 2024-02-17 13:07 | NUR ---
PHYSICIAN CONTACT CALLED DR DOWNS IN REGARDS TO PATIENT BEING ADMITTED UNDER [employer] INCORRECTLY. CHARGE AND HAND LEATHER TRIMMER INSTRUCTED THIS PT SHOULD BELONG TO DR DOWNS.
[2024-02-17 15:48] VITALS: BP 128/67
[2024-02-17] MEDS ORDERED: Mirtazapine 15 MG Tab PO SCH (21:00)
[2024-02-17] MEDS ORDERED: Phenylephrine 0.5% Nasal Spray/Drops 15 ML SCH (21:00)
[2024-02-18 03:34] VITALS: BP 135/70
[2024-02-18] MEDS ORDERED: Saline Nasal Spray 45 ML PRN (05:00)
[2024-02-18 05:22] LABS: BASOPHILS ABSOLUTE AUTO 0.07 K/mm3 (0.00-0.23); BASOPHILS PERCENT AUTO 1 % (0-2); EOSINOPHILS ABSOLUTE AUTO 0.35 K/mm3 (0.00-0.68); EOSINOPHILS PERCENT AUTO 4 % (0-6); Hemoglobin 11.6 g/dL (13.5-17.5); IMMATURE GRAN ABSOLUTE AUTO 0.07 K/mm3 (0.00-0.10); IMMATURE GRAN PERCENT AUTO 1 % (0-1); LYMPHOCYTES ABSOLUTE AUTO 1.78 K/mm3 (0.84-5.20); LYMPHOCYTES PERCENT AUTO 21 % (21-46); MONOCYTES ABSOLUTE AUTO 0.74 K/mm3 (0.16-1.47); MONOCYTES PERCENT AUTO 9 % (4-13); Mean Corpuscular HGB 29.6 pg (26.0-34.0); Mean Corpuscular HGB Conc 32.2 g/dL (31.5-36.5); Mean Corpuscular Volume 92 fL (80-100); Mean Platelet Volume 9.5 fL (9.1-12.4); NEUTROPHILS ABSOLUTE AUTO 5.47 K/mm3 (1.96-9.15); NEUTROPHILS PERCENT AUTO 65 % (41-73); Platelet Count 330 K/mm3 (150-400); RDW Coefficient Variation 13.6 % (11.7-14.2); RDW Standard Deviation 45.2 fL (35.1-46.3); Red Blood Cell Count 3.92 M/mm3 (4.30-5.90); White Blood Cell Count 8.48 K/mm3 (4.00-11.30)
[2024-02-18 05:52] LABS: Bun/Creatinine Ratio 11.4 (12.0-20.0); Calcium, Blood 8.6 mg/dL (8.5-10.1); Creatinine, Blood 1.67 mg/dL (0.60-1.20)
--- NOTE | 2024-02-18 05:54 | NUR ---
SHIFT SUMMARY PT A&O X4, HYDABURG, WITH SOME CONFUSION WHEN AWAKENING AT NIGHT. PT TALKING IN SLEEP WITH FREQUENT EPISODES OF SLEEP APNEA. O2 INCREASED FROM 2L TO 3L AT 0400 DUE TO DESATURATION. PT WITH WET-SOUNDING BREATHING WHILE SLEEPING. ABLE TO CLEAR AIRWAY WHEN AWAKE. BRACE INTACT TO RIGHT LEG, LEG ELEVATED ON PILLOW, BUT KNEE KEPT STRAIGHT. NO BM DURING THE NIGHT. BED IN LOWEST POSITION, CALL LIGHT WITHIN REACH, SIDE RAILS UP X2.
[2024-02-18 07:20] VITALS: BP 142/73
[2024-02-18 16:16] VITALS: BP 123/76
--- NOTE | 2024-02-18 16:31 | NUR ---
SHIFT SUMMARY PT IS A/OX4. CURRENTLY ON 1.5L O2, SATS MAINTAINING >90% WITH PULSE OX. PT CONTINENT OF BLADDER, USING URINAL INDEPENDENTLY. REMAINS NON-WEIGHT BEARING TO THE E. PT WORKED WITH PHYSICAL THERAPY THIS SHIFT. PER PHYSICAL THERAPY, PT'S KNEE BRACE IS LOCKED AT 90 DEGREES ON ONE SIDE AND 70 DEGREES ON THE OTHER. DUE TO CONFUSION OF THE DEGREE OF MOVEMENT THAT THE RIGHT KNEE SHOULD BE PREFORMING, THE PT REMAINS BEDREST AT THIS TIME, KEEPING THE RIGHT KNEE STRAIGHT.
[2024-02-18 19:19] VITALS: BP 123/68
[2024-02-19 03:16] VITALS: BP 139/81
[2024-02-19 05:08] LABS: BASOPHILS ABSOLUTE AUTO 0.05 K/mm3 (0.00-0.23); BASOPHILS PERCENT AUTO 1 % (0-2); EOSINOPHILS ABSOLUTE AUTO 0.31 K/mm3 (0.00-0.68); EOSINOPHILS PERCENT AUTO 3 % (0-6); Hematocrit 37.9 % (37.0-53.0); Hemoglobin 12.2 g/dL (13.5-17.5); IMMATURE GRAN PERCENT AUTO 1 % (0-1); LYMPHOCYTES ABSOLUTE AUTO 1.52 K/mm3 (0.84-5.20); LYMPHOCYTES PERCENT AUTO 17 % (21-46); MONOCYTES PERCENT AUTO 9 % (4-13); Mean Corpuscular HGB 29.8 pg (26.0-34.0); Mean Corpuscular HGB Conc 32.2 g/dL (31.5-36.5); Mean Corpuscular Volume 93 fL (80-100); Mean Platelet Volume 9.5 fL (9.1-12.4); NEUTROPHILS ABSOLUTE AUTO 6.34 K/mm3 (1.96-9.15); NEUTROPHILS PERCENT AUTO 70 % (41-73); Platelet Count 338 K/mm3 (150-400); RDW Coefficient Variation 13.4 % (11.7-14.2); RDW Standard Deviation 45.6 fL (35.1-46.3); Red Blood Cell Count 4.09 M/mm3 (4.30-5.90); White Blood Cell Count 9.12 K/mm3 (4.00-11.30)
--- NOTE | 2024-02-19 05:48 | NUR ---
SHIFT SUMMARY PT SLEPT LONG INTERVALS THROUGH THE NIGHT. O2 INCREASED FROM 1.5L TO 4L DUE TO DESATURATION WITH SLEEP APNEA. O2 SATS DOWN TO THE 70'S BRIEFLY, THEN BACK TO HIGH 90'S. PT TALKS IN HIS SLEEP, AND IS VERY RESTLESS WELL. VOIDS PER URINAL, CONTINENT, BUT SOMETIMES MISSES THE URINAL. DEPENDS CHANGED PRN. ASSISTED WITH POSITION CHANGES. BED IN LOWEST POSITION, CALL LIGHT WITHIN REACH, SIDE RAILS UP X2.
[2024-02-19 05:49] LABS: Albumin, Blood 2.5 g/dL (3.4-5.0); Albumin/Globulin Ratio 0.6 (0.8-1.8); Bilirubin, Total 0.9 mg/dL (0.1-1.0); Calcium, Blood 8.8 mg/dL (8.5-10.1); Creatinine, Blood 1.69 mg/dL (0.60-1.20); Globulin, Blood 3.9 g/dL (2.2-4.0); Potassium, Blood 3.9 mmol/L (3.5-5.5); Total Protein, Blood 6.4 g/dL (6.4-8.2)
[2024-02-19 07:47] VITALS: BP 140/75
[2024-02-19 15:32] VITALS: BP 119/77
--- NOTE | 2024-02-19 16:17 | NUR ---
SHIFT SUMMARY PT IS A/OX4, BEDREST AT THIS TIME D/T NON-WEIGHT BEARING TO RIGHT KNEE FROM SURGERY 2 MONTHS AGO. PT UP TO THE SIDE OF THE BED FOR MEALS. ON 1.5-2L O2 WHILE AWAKE AND 4L WHILE ASLEEP D/T JOSEFINA, CONTINUOUS PULSE OX IN USE. PT PROVIDED AND INSTRUCTED ON INCENTIVE SPIROMETER USE, WHICH HE DEMONSTRATED USE OF. PT USING URINAL INDEPENDENTLY, OCCASIONALLY MISSES URINAL, ATTENDS IN PLACE AND CHANGED NEEDED. FAMILY AT BEDSIDE THIS SHIFT. AWAITING PLACEMENT TO SNF.
[2024-02-19 19:29] VITALS: BP 123/71
--- NOTE | 2024-02-19 20:36 | NUR ---
COVID SWAB SENT TO LAB
[2024-02-19 21:00] LABS: CORONAVIRUS COVID-19 AG Negative (NEGATIVE)
[2024-02-20 02:10] VITALS: BP 100/60
--- NOTE | 2024-02-20 04:41 | NUR ---
SHIFT SUMMARY PATIENT HAD NO ACUTE CHANGES. AXOX 4 AND BEDREST. ON 4L O2 NC AT NIGHT STATING 96% ON CONTINUOUS PULSE OXIMETRY. PIV INTACT. DENIES CHEST PAIN AND N/V. SOB W/EXERTION. VSS/AFEBRILE. USES URINAL AT BEDSIDE. SLEPT ON/OFF. CALL LIGHT IN REACH. BED IN LOWEST POSITION. WILL CONTINUE TO MONITOR UNTIL DAY SHIFT NURSE ASSUMES CARE.
[2024-02-20 05:56] LABS: Bun/Creatinine Ratio 14.3 (12.0-20.0); Calcium, Blood 9.2 mg/dL (8.5-10.1); Creatinine, Blood 1.61 mg/dL (0.60-1.20)
[2024-02-20 07:25] VITALS: BP 120/71
--- NOTE | 2024-02-20 08:00 | NUR ---
PT PLEASANT COOP THIS AM. DENIES PAIN. LUNGS CLEAR, RESP EASY, UNLABORED. ON 2L O2 AT THIS TIME. 4L AT NIGHT. H/R REG, NO MURMUR NOTED. BLE +1. RT LEG IN BRACE, STATES NON WT BEARING. DOES HAVE GOOD CAP REFILL < 3 SEC. FEET BOTH LIGHT, PULSES FELT. MISC SCABS. STATES FEELS READY TO GO TO REHAB. BED IN LOW POSITION, CALL LITE IN REACH, CALLS APROP
[2024-02-20] MEDS ORDERED: METO25ER PO (11:36)
[2024-02-20] MEDS ORDERED: PHENY.5NI (11:37)
[2024-02-20] MEDS ORDERED: NASAL SPRAY88 ML (11:40)
[2024-02-20 12:17] LABS: Magnesium, Blood 1.6 mg/dL (1.6-2.4); Phosphorus, Blood 3.3 mg/dL (2.5-4.9)
[2024-02-20 13:26] LABS: International Normalized Ratio 1.02; Prothrombin Time Results 10.9 Sec (9.7-11.5)
--- NOTE | 2024-02-20 13:45 | NUR ---
PT IV PULLED INTACT. NO TELE. PT TRANSPORT HERE. ON 2L O2, GAVE TANK TO GET TRAANSPORT TO [facility]. PT OUT AT [id number]
--- NOTE | 2024-02-20 13:46 | NUR ---
REPORT CALLED TO DOMINIQUE PELAYO AT [id number]
== END 2024-02-20 13:39 ==
LOC: ER 17:21 → ERHOLD 17:22 → MEDS 17:22
PROVIDERS: Emergency Medicine; Internal Medicine; Student in an Organized Health Care Education/Training Program; ADMIT Student in an Organized Health Care Education/Training Program
DX: N17.9 Acute kidney failure, unspecified (principal); E86.0 Dehydration; D64.9 Anemia, unspecified; I13.0 Hypertensive heart and chronic kidney disease with heart failure and stage 1 through stage 4 chronic kidney disease, or unspecified chronic kidney disease; I50.30 Unspecified diastolic (congestive) heart failure; N18.9 Chronic kidney disease, unspecified; E83.42 Hypomagnesemia; R19.7 Diarrhea, unspecified; I25.10 Atherosclerotic heart disease of native coronary artery without angina pectoris; S82.401A Unspecified fracture of shaft of right fibula, initial encounter for closed fracture; E78.5 Hyperlipidemia, unspecified; R73.03 Prediabetes; Z66 Do not resuscitate; Z79.899 Other long term (current) drug therapy; Z85.46 Personal history of malignant neoplasm of prostate; Z87.891 Personal history of nicotine dependence
CPT/HCPCS: 36415; 71045; 80048; 80053; 82330; 83735; 83880; 84100; 84484; 85025; 85610; 85730; 87426-QW; 93005; 93010; 94762; 96361; 96365; 96372; 97110; 97162; 97530; 99285-25; A9270; G0378; J1650; J3475; J7030; J7120

== ENCOUNTER → 2024-04-06 | Outpatient (CLI) | payer OTHER ==
[~2024-04-06] MED LIST changes: +NASAL SPRAY88 ML; +PHENY.5NI
[2024-04-06 13:11] LABS: Albumin, Blood 2.9 g/dL (3.4-5.0); Albumin/Globulin Ratio 0.7 (0.8-1.8); Bilirubin, Total 0.6 mg/dL (0.1-1.0); Bun/Creatinine Ratio 17.2 (12.0-20.0); Calcium, Blood 9.4 mg/dL (8.5-10.1); Creatinine, Blood 1.51 mg/dL (0.60-1.20); Globulin, Blood 4.3 g/dL (2.2-4.0); Magnesium, Blood 1.5 mg/dL (1.6-2.4); Potassium, Blood 4.8 mmol/L (3.5-5.5); Total Protein, Blood 7.2 g/dL (6.4-8.2)
[2024-04-06 13:12] LABS: BASOPHILS ABSOLUTE AUTO 0.11 K/mm3 (0.00-0.23); BASOPHILS PERCENT AUTO 1 % (0-2); EOSINOPHILS ABSOLUTE AUTO 0.36 K/mm3 (0.00-0.68); EOSINOPHILS PERCENT AUTO 3 % (0-6); Hematocrit 42.3 % (37.0-53.0); Hemoglobin 13.5 g/dL (13.5-17.5); IMMATURE GRAN ABSOLUTE AUTO 0.18 K/mm3 (0.00-0.10); IMMATURE GRAN PERCENT AUTO 1 % (0-1); LYMPHOCYTES ABSOLUTE AUTO 2.52 K/mm3 (0.84-5.20); LYMPHOCYTES PERCENT AUTO 19 % (21-46); MONOCYTES ABSOLUTE AUTO 1.01 K/mm3 (0.16-1.47); MONOCYTES PERCENT AUTO 8 % (4-13); Mean Corpuscular HGB 29.3 pg (26.0-34.0); Mean Corpuscular HGB Conc 31.9 g/dL (31.5-36.5); Mean Corpuscular Volume 92 fL (80-100); NEUTROPHILS ABSOLUTE AUTO 9.06 K/mm3 (1.96-9.15); NEUTROPHILS PERCENT AUTO 69 % (41-73); Platelet Count 336 K/mm3 (150-400); RDW Coefficient Variation 14.8 % (11.7-14.2); White Blood Cell Count 13.24 K/mm3 (4.00-11.30)
== END ==
LOC: LAB 11:36 → LAB SHORT 11:36
DX: E83.42 Hypomagnesemia (principal); S82.112D Displaced fracture of left tibial spine, subsequent encounter for closed fracture with routine healing; R53.1 Weakness; D63.1 Anemia in chronic kidney disease; N17.9 Acute kidney failure, unspecified
CPT/HCPCS: 80053; 83735; 85025

== ENCOUNTER → 2024-04-25 | Outpatient (CLI) | payer OTHER ==
[2024-04-25 15:58] LABS: Albumin, Blood 2.9 g/dL (3.4-5.0); Albumin/Globulin Ratio 0.7 (0.8-1.8); Bilirubin, Total 1.1 mg/dL (0.1-1.0); Bun/Creatinine Ratio 18.8 (12.0-20.0); Calcium, Blood 9.5 mg/dL (8.5-10.1); Creatinine, Blood 1.54 mg/dL (0.60-1.20); Globulin, Blood 4.3 g/dL (2.2-4.0); Magnesium, Blood 1.5 mg/dL (1.6-2.4); Potassium, Blood 4.2 mmol/L (3.5-5.5); Total Protein, Blood 7.2 g/dL (6.4-8.2)
== END | disposition home or self-care (01) ==
LOC: LAB SHORT 12:26 → LAB 12:26
DX: E87.8 Other disorders of electrolyte and fluid balance, not elsewhere classified (principal)
CPT/HCPCS: 80053; 83735

== ENCOUNTER 2025-01-13 15:42 | Emergency (ER) | payer OTHER ==
[~2025-01-13] VITALS: Ht 185.4 cm; Wt 108.0 kg
[2025-01-13 16:42] LABS: BASOPHILS ABSOLUTE AUTO 0.07 K/mm3 (0.00-0.23); BASOPHILS PERCENT AUTO 1 % (0-2); EOSINOPHILS ABSOLUTE AUTO 0.25 K/mm3 (0.00-0.68); EOSINOPHILS PERCENT AUTO 3 % (0-6); Hematocrit 39.8 % (37.0-53.0); Hemoglobin 13.1 g/dL (13.5-17.5); IMMATURE GRAN ABSOLUTE AUTO 0.10 K/mm3 (0.00-0.10); IMMATURE GRAN PERCENT AUTO 1 % (0-1); LYMPHOCYTES ABSOLUTE AUTO 0.82 K/mm3 (0.84-5.20); LYMPHOCYTES PERCENT AUTO 8 % (21-46); MONOCYTES ABSOLUTE AUTO 0.96 K/mm3 (0.16-1.47); MONOCYTES PERCENT AUTO 10 % (4-13); Mean Corpuscular HGB Conc 32.9 g/dL (31.5-36.5); Mean Corpuscular Volume 95 fL (80-100); NEUTROPHILS ABSOLUTE AUTO 7.74 K/mm3 (1.96-9.15); NEUTROPHILS PERCENT AUTO 78 % (41-73); NRBC ABSOLUTE 0.00 K/mm3 (0.00-0.02); NRBC Auto 0.0 /100 WBC (0.0-0.2); Platelet Count 265 K/mm3 (150-400); RDW Coefficient Variation 13.4 % (11.7-14.2); RDW Standard Deviation 46.9 fL (35.1-46.3)
[2025-01-13 17:03] LABS: Alanine Aminotransfer (ALT/SGP 26.0 U/L (12-78); Albumin, Blood 3.3 g/dL (3.4-5.0); Albumin/Globulin Ratio 0.7 (0.8-1.8); Anion Gap 13.0 mmol/L (3-11); Aspartate Aminotrans (AST/SGOT 34.0 U/L (12-37); Bilirubin, Total 0.5 mg/dL (0.1-1.0); Blood Urea Nitrogen 35.0 mg/dL (8-24); CO2, Blood 20.0 mmol/L (21-32); Calcium, Blood 8.8 mg/dL (8.5-10.1); Chloride, Blood 105.0 mmol/L (98-108); Creatinine, Blood 1.48 mg/dL (0.60-1.20); Globulin, Blood 4.5 g/dL (2.2-4.0); Glucose, Blood 118.0 mg/dL (70-99); Potassium, Blood 4.4 mmol/L (3.5-5.5); Sodium, Blood 134.0 mmol/L (136-145); Total Protein, Blood 7.8 g/dL (6.4-8.2)
[2025-01-13] MEDS ORDERED: CefTRIAXone Sodium 1,000 MG in NS 100 ML IV ONE (18:55)
[2025-01-13 20:30] VITALS: BP 125/71
[2025-01-13] MEDS ORDERED: DOXY100 PO (20:50)
[2025-01-13] MEDS ORDERED: AMOCLA875 PO (20:50)
== END 2025-01-13 21:04 | disposition home or self-care (01) ==
LOC: ER 15:42
PROVIDERS: Student in an Organized Health Care Education/Training Program
DX: R06.02 Shortness of breath (principal)
CPT/HCPCS: 71045; 71260; 80053; 83880; 84484; 85025; 85379; 93005; 93010; 96365-59; 99285-25; A9270; J0696; Q9967